=== PATIENT | male | born 1965 | race Caucasian/White ===

== ENCOUNTER 2016-10-31 20:06 | Emergency (ER) | payer BC ==
[~2016-10-31] VITALS: Ht 195.6 cm; Wt 173.0 kg
[~2016-10-31 20:06] MED LIST: AMIO200T42 PO; AMIO400T4 PO; AMLO10TA2 PO; APIX5TAB PO; ASPI-496 PO; BLOOD PRESSURE PO; CARV12.543 PO; CARV25TA12 PO; CLON0.1T PO; DIGO125T PO; DULA1.5P SC; ENOX150S5 SQ; FAMO20TA7 PO; FURO-92 PO; FURO-93 PO; HYDR-3307 PO; HYDR-3341 PO; HYDR-3342 PO; HYDR-3343 PO; IBUP200T48 PO; LEVO25CA2 PO; LORA-446 PO; LOSA100T6 PO; LOSA1TAB17 PO; LOSA1TAB18 PO; LOSA50TA6 PO; MAGN400T7 PO; MELA1TAB22 PO; METO25TA35 PO; METO50TA82 PO; OMEP20TA9 PO; POLY17PO5 PO; POTA20TA91 PO; RIVA20TA PO; SUCR1TAB33 PO; WARF10TA PO; WARF5TAB PO
[2016-10-31 20:14] VITALS: BP 182/103
== END 2016-10-31 21:01 | disposition left against medical advice (07) ==
LOC: ED 20:55
DX: R07.9 Chest pain, unspecified (principal); R06.02 Shortness of breath; Z53.21 Procedure and treatment not carried out due to patient leaving prior to being seen by health care provider
CPT/HCPCS: 93005; 99281

== ENCOUNTER 2017-03-30 11:44 | Observation (INO) | payer BC ==
[~2017-03-30] VITALS: Ht 195.6 cm; Wt 180.0 kg
[~2017-03-30 11:44] MED LIST changes: -AMIO400T4 PO; +AMIO400T5 PO; -IBUP200T48 PO; +IBUP200T49 PO; -LOSA1TAB17 PO; -LOSA1TAB18 PO; +LOSA1TAB22 PO; +LOSA1TAB25 PO
[2017-03-30] MEDS ORDERED: ASPIRIN 81 MG TABLET CHEW ONE (12:14)
[2017-03-30 12:28] LABS: BASOPHILS # (AUTO) 0.02 x10^3/uL (0-0.1); BASOPHILS % (AUTO) 0 % (0-1); EOSINOPHILS # (AUTO) 0.05 x10^3/uL (0-0.4); EOSINOPHILS % (AUTO) 1 % (1-7); LYMPHOCYTES # (AUTO) 1.71 x10^3/uL (1-3.4); LYMPHOCYTES % (AUTO) 25 % (22-44); MD NO; MEAN CORPUSCULAR HGB CONC 34.3 g/dL (33.2-36.2); MEAN CORPUSCULAR VOLUME 90.6 fL (81-97); MEAN PLATELET VOLUME 8.5 fL (7.4-10.4); MONOCYTES # (AUTO) 0.83 x10^3/uL (0.2-0.8); MONOCYTES % (AUTO) 12 % (2-9); NEUTROPHILS # (AUTO) 4.18 x10^3/uL (1.8-6.8); NEUTROPHILS % (AUTO) 62 % (42-75); PLATELET COUNT 200 x10^3/uL (130-400); RED CELL DISTRIBUTION WIDTH 13.1 % (9.4-14.8)
[2017-03-30] MEDS ORDERED: ASPIRIN 81 MG TABLET CHEW PO ONE (12:30)
[2017-03-30 12:41] LABS: ALBUMIN 3.7 g/dL (3.4-5.0); ANION GAP 5 mmol/L (5-15); CALCIUM 8.3 mg/dL (8.5-10.1); CHLORIDE 107 mmol/L (98-107); CREATININE 1.72 mg/dL (0.7-1.3)
[2017-03-30 12:45] LABS: TROPONIN I 0.024 ng/mL (0.000-0.045)
[2017-03-30] MEDS ORDERED: SODIUM CHLORIDE FLUSH 10ML SYR IVF ONE (13:00)
[2017-03-30] MEDS ORDERED: LORazepam 2 MG/ML, 1ML IVPush ONE (13:00)
[2017-03-30] MEDS ORDERED: LORazepam 2 MG/ML, 1ML ONE (13:00)
[2017-03-30] MEDS ORDERED: NITROGLYCERIN SINGLE TAB 0.4 MG SL ONE ×2 (13:30→13:35)
[2017-03-30] MEDS ORDERED: SODIUM CHLORIDE 0.9% 1,000 ML IV SCH (14:01)
[2017-03-30] MEDS ORDERED: morphine SULFATE 10 MG/ML, 1ML ONE ×2 (14:20→17:45)
[2017-03-30] MEDS: morphine SULFATE 10 MG/ML, 1ML IVPush PRN ×5 (14:22→21:57)
[2017-03-30] MEDS ORDERED: LABETALOL 5MG/ML, 20ML IVPush PRN (14:30)
[2017-03-30] MEDS ORDERED: POLYETHYLENE GLYCOL 17 GM PACKET PO PRN (14:30)
[2017-03-30] MEDS ORDERED: DOCUSATE 100 MG CAPSULE PO PRN (14:30)
[2017-03-30] MEDS ORDERED: ONDANSETRON 2MG/ML, 2ML IVPush PRN (14:30)
[2017-03-30] MEDS ORDERED: BISACODYL 10 MG SUPP PR PRN (14:30)
[2017-03-30] MEDS ORDERED: METOPROLOL TARTRATE 50 MG TABLET PO PRN (14:30)
[2017-03-30] MEDS ORDERED: NITROGLYCERIN 0.4 MG BOTTLE (25 TABS) SL PRN (14:30)
[2017-03-30 17:28] LABS: TROPONIN I 0.024 ng/mL (0.000-0.045)
[2017-03-30] MEDS ORDERED: HEPARIN 5,000 UNITS/ML, 1ML ONE (18:42)
[2017-03-30] MEDS: HEPARIN 5,000 UNITS/ML, 1ML SQ SCH (19:02)
[2017-03-30] MEDS ORDERED: KETOROLAC 30 MG/1 ML ONE (20:01)
[2017-03-30] MEDS ORDERED: KETOROLAC 30 MG/1 ML IVPush SCH (20:30)
[2017-03-30 21:26] VITALS: BP 145/90
[2017-03-30] MEDS ORDERED: HYDR-3343 PO (21:36)
[2017-03-30 23:08] LABS: TROPONIN I 0.025 ng/mL (0.000-0.045)
[2017-03-31] MEDS: morphine SULFATE 10 MG/ML, 1ML IVPush PRN ×2 (02:28→05:52)
[2017-03-31] MEDS: HEPARIN 5,000 UNITS/ML, 1ML SQ SCH ×2 (02:28→11:12)
[2017-03-31 02:41] VITALS: BP 165/72
[2017-03-31 05:47] LABS: CHOL/HDL RATIO 4.3; LDL/HDL RATIO 1.4 (0.5-3.0)
[2017-03-31] MEDS ORDERED: ASPIRIN 325 MG TABLET EC PO SCH (06:00)
[2017-03-31 07:42] VITALS: BP 151/87
[2017-03-31] MEDS ORDERED: REGADENOSON 0.4 MG/5 ML SYRINGE ONE (08:21)
[2017-03-31] MEDS ORDERED: LOSARTAN 50MG TABLET PO SCH (09:00)
[2017-03-31] MEDS ORDERED: LEVOTHYROXINE 75 MCG TABLET PO SCH (09:00)
[2017-03-31] MEDS ORDERED: AMLODIPINE 5 MG TABLET PO SCH (09:00)
[2017-03-31] MEDS ORDERED: KETOROLAC 30 MG/1 ML IVPush PRN (10:30)
[2017-03-31] MEDS ORDERED: FLU VACC QS2017-18 (36MOS+) UP/PF 0.5 ML IM-VACC ONE (12:30)
== END 2017-03-31 14:02 | disposition home or self-care (01) ==
LOC: ED 13:20 → INTOOBSV 13:21 → EDIP 13:21 → ED 13:33 → 5SO 20:14
PROVIDERS: ADMIT Internal Medicine; ATTEND Internal Medicine
DX: R07.9 Chest pain, unspecified (principal); D63.8 Anemia in other chronic diseases classified elsewhere; E03.9 Hypothyroidism, unspecified; E78.5 Hyperlipidemia, unspecified; I13.0 Hypertensive heart and chronic kidney disease with heart failure and stage 1 through stage 4 chronic kidney disease, or unspecified chronic kidney disease; E11.22 Type 2 diabetes mellitus with diabetic chronic kidney disease; G47.33 Obstructive sleep apnea (adult) (pediatric); I50.9 Heart failure, unspecified; N18.3 Chronic kidney disease, stage 3 (moderate); I48.91 Unspecified atrial fibrillation; I45.10 Unspecified right bundle-branch block; I42.9 Cardiomyopathy, unspecified; F41.1 Generalized anxiety disorder; E88.81 Metabolic syndrome and other insulin resistance; R06.02 Shortness of breath; I27.20 Pulmonary hypertension, unspecified; G89.29 Other chronic pain; M79.606 Pain in leg, unspecified; Z79.899 Other long term (current) drug therapy; Z98.890 Other specified postprocedural states
CPT/HCPCS: 36415; 71045; 78452; 80048; 80061; 82040; 84484; 85025; 85379; 90471; 90686; 93005; 93017; 96361; 96372; 96374; 96375; 96376; 99285; A9502; C9898; G0378; J1644; J1885; J2060; J2270; J2785; J7030

== ENCOUNTER 2017-12-05 10:56 | Inpatient (IN) | payer BC ==
[~2017-12-05] VITALS: Ht 195.6 cm; Wt 179.0 kg
[~2017-12-05 10:56] MED LIST changes: -AMLO10TA2 PO; +AMLO10TA6 PO; -LOSA100T6 PO; +LOSA100T7 PO; -LOSA50TA6 PO; +LOSA50TA7 PO
[2017-12-05] MEDS ORDERED: DILTIAZEM 125 MG in DEXTROSE 5% 100 ML IV SCH (11:21)
[2017-12-05] MEDS ORDERED: DILTIAZEM 5 MG/ML, 5ML ONE ×2 (11:23→12:20)
[2017-12-05] MEDS ORDERED: DILTIAZEM 5 MG/ML, 5ML IV ONE (11:30)
[2017-12-05] MEDS ORDERED: LORazepam 2 MG/ML, 1ML ONE (11:37)
[2017-12-05 12:00] LABS: BASOPHILS # (AUTO) 0.05 x10^3/uL (0-0.1); BASOPHILS % (AUTO) 1 % (0-1); EOSINOPHILS # (AUTO) 0.06 x10^3/uL (0-0.4); EOSINOPHILS % (AUTO) 1 % (1-7); LYMPHOCYTES # (AUTO) 2.05 x10^3/uL (1-3.4); LYMPHOCYTES % (AUTO) 21 % (22-44); MD NO; MEAN CORPUSCULAR HEMOGLOBIN 31.8 pg (27.5-34.5); MEAN CORPUSCULAR HGB CONC 33.9 g/dL (33.2-36.2); MEAN CORPUSCULAR VOLUME 93.8 fL (81-97); MEAN PLATELET VOLUME 9.7 fL (7.4-10.4); MONOCYTES # (AUTO) 0.98 x10^3/uL (0.2-0.8); MONOCYTES % (AUTO) 10 % (2-9); NEUTROPHILS # (AUTO) 6.55 x10^3/uL (1.8-6.8); NEUTROPHILS % (AUTO) 68 % (42-75); PLATELET COUNT 199 x10^3/uL (130-400); RED BLOOD COUNT 4.78 x10^6/uL (4.38-5.82); RED CELL DISTRIBUTION WIDTH 13.5 % (9.4-14.8)
[2017-12-05] MEDS ORDERED: LORazepam 2 MG/ML, 1ML IVPush ONE (12:00)
[2017-12-05 12:13] LABS: ALBUMIN 3.6 g/dL (3.4-5.0); ANION GAP 7 mmol/L (5-15); CALCIUM 8.2 mg/dL (8.5-10.1); CHLORIDE 111 mmol/L (98-107); CREATININE 2.01 mg/dL (0.7-1.3)
[2017-12-05 12:17] LABS: TROPONIN I 0.021 ng/mL (0.000-0.045)
[2017-12-05 12:22] LABS: INTERNATIONAL NORMALIZED RATIO 1.01 (0.93-1.1); PROTHROMBIN TIME 10.4 Seconds (9.6-11.5)
[2017-12-05] MEDS ORDERED: APIXABAN 2.5 MG TABLET PO ONE (13:00)
[2017-12-05] MEDS ORDERED: SODIUM CHLORIDE 0.9%, 500ML IVBOLUS ONE (13:00)
[2017-12-05] MEDS ORDERED: APIXABAN 5 MG TABLET ONE (13:04)
[2017-12-05] MEDS ORDERED: ONDANSETRON 2MG/ML, 2ML IVPush PRN (13:30)
[2017-12-05 14:30] VITALS: BP 130/86
[2017-12-05 14:46] LABS: TROPONIN I 0.025 ng/mL (0.000-0.045)
[2017-12-05] MEDS ORDERED: ACETAMINOPHEN 325 MG TABLET ONE (14:58)
[2017-12-05] MEDS: ACETAMINOPHEN 325 MG TABLET PO PRN ×2 (15:01→22:13)
[2017-12-05] MEDS: MORPHINE SULFATE 4 MG/ML, 1ML IVPush PRN ×2 (16:49→21:15)
[2017-12-05 19:18] LABS: HEMOGLOBIN A1C 6.3 % (4.2-6.3)
[2017-12-05 19:46] VITALS: BP 109/71
[2017-12-05 19:47] LABS: TROPONIN I 0.025 ng/mL (0.000-0.045)
[2017-12-05 20:48] VITALS: BP 123/78
[2017-12-05] MEDS: DILTIAZEM 125 MG in SODIUM CHLORIDE 0.9% 100 ML IV SCH (21:00)
[2017-12-06 02:00] VITALS: BP 135/78
[2017-12-06] MEDS: ACETAMINOPHEN 325 MG TABLET PO PRN ×2 (02:06→11:18)
[2017-12-06] MEDS: MORPHINE SULFATE 4 MG/ML, 1ML IVPush PRN ×3 (02:07→22:10)
[2017-12-06 05:53] LABS: ANION GAP 8 mmol/L (5-15); CALCIUM 7.7 mg/dL (8.5-10.1); CHLORIDE 109 mmol/L (98-107)
[2017-12-06 05:55] LABS: CREATININE 2.45 mg/dL (0.7-1.3)
[2017-12-06 06:11] LABS: BASOPHILS # (AUTO) 0.04 x10^3/uL (0-0.1); BASOPHILS % (AUTO) 1 % (0-1); EOSINOPHILS # (AUTO) 0.16 x10^3/uL (0-0.4); EOSINOPHILS % (AUTO) 3 % (1-7); LYMPHOCYTES # (AUTO) 2.32 x10^3/uL (1-3.4); LYMPHOCYTES % (AUTO) 37 % (22-44); MD NO; MEAN CORPUSCULAR HEMOGLOBIN 32.4 pg (27.5-34.5); MEAN CORPUSCULAR HGB CONC 34.3 g/dL (33.2-36.2); MEAN CORPUSCULAR VOLUME 94.5 fL (81-97); MEAN PLATELET VOLUME 9.6 fL (7.4-10.4); MONOCYTES # (AUTO) 0.73 x10^3/uL (0.2-0.8); MONOCYTES % (AUTO) 12 % (2-9); NEUTROPHILS # (AUTO) 3.02 x10^3/uL (1.8-6.8); NEUTROPHILS % (AUTO) 48 % (42-75); PLATELET COUNT 167 x10^3/uL (130-400); RED BLOOD COUNT 4.07 x10^6/uL (4.38-5.82); RED CELL DISTRIBUTION WIDTH 13.7 % (9.4-14.8)
[2017-12-06] MEDS: LEVOTHYROXINE 75 MCG TABLET PO SCH (06:30)
[2017-12-06] MEDS ORDERED: POTASSIUM PHOSPHATE 22 MEQ in SODIUM CHLORIDE 0.9% 500 ML IV ONE (09:00)
[2017-12-06] MEDS ORDERED: METOPROLOL TARTRATE 50 MG TABLET PO SCH (09:00)
[2017-12-06] MEDS ORDERED: APIXABAN 2.5 MG TABLET PO SCH (09:00)
[2017-12-06] MEDS: DILTIAZEM 125 MG in SODIUM CHLORIDE 0.9% 100 ML IV SCH (10:43)
[2017-12-06 13:53] VITALS: BP 116/74
[2017-12-06] MEDS: METOPROLOL TARTRATE 25 MG TABLET PO SCH (14:06)
[2017-12-06] MEDS ORDERED: METOPROLOL TARTRATE 50 MG TABLET ONE (14:07)
[2017-12-06] MEDS ORDERED: METOPROLOL TARTRATE 50 MG TABLET PO ONE (14:30)
[2017-12-06 19:04] VITALS: BP 105/76
[2017-12-06] MEDS: APIXABAN 5 MG TABLET PO SCH (22:10)
[2017-12-07 03:16] VITALS: BP 131/92
[2017-12-07] MEDS: LEVOTHYROXINE 75 MCG TABLET PO SCH (05:20)
[2017-12-07] MEDS: METOPROLOL TARTRATE 25 MG TABLET PO SCH (05:20)
[2017-12-07] MEDS: ACETAMINOPHEN 325 MG TABLET PO PRN (06:17)
[2017-12-07 07:35] VITALS: BP 134/78
[2017-12-07] MEDS: APIXABAN 5 MG TABLET PO SCH (07:40)
[2017-12-07 08:26] LABS: BASOPHILS # (AUTO) 0.05 x10^3/uL (0-0.1); BASOPHILS % (AUTO) 1 % (0-1); EOSINOPHILS # (AUTO) 0.14 x10^3/uL (0-0.4); EOSINOPHILS % (AUTO) 2 % (1-7); LYMPHOCYTES # (AUTO) 1.86 x10^3/uL (1-3.4); LYMPHOCYTES % (AUTO) 26 % (22-44); MD NO; MEAN CORPUSCULAR HEMOGLOBIN 31.9 pg (27.5-34.5); MEAN CORPUSCULAR HGB CONC 34.3 g/dL (33.2-36.2); MEAN PLATELET VOLUME 9.4 fL (7.4-10.4); MONOCYTES # (AUTO) 0.81 x10^3/uL (0.2-0.8); MONOCYTES % (AUTO) 11 % (2-9); NEUTROPHILS # (AUTO) 4.24 x10^3/uL (1.8-6.8); NEUTROPHILS % (AUTO) 60 % (42-75); PLATELET COUNT 185 x10^3/uL (130-400); RED BLOOD COUNT 4.36 x10^6/uL (4.38-5.82); RED CELL DISTRIBUTION WIDTH 14.2 % (9.4-14.8)
[2017-12-07 08:36] LABS: ANION GAP 6 mmol/L (5-15); CALCIUM 7.8 mg/dL (8.5-10.1); CHLORIDE 111 mmol/L (98-107); CREATININE 1.96 mg/dL (0.7-1.3)
[2017-12-07] MEDS ORDERED: APIX5TAB PO (09:57)
[2017-12-07] MEDS ORDERED: METO50TA82 PO (09:57)
[2017-12-07] MEDS ORDERED: METOPROLOL TARTRATE 50 MG TABLET PO ONE (10:00)
[2017-12-07] MEDS ORDERED: METOPROLOL TARTRATE 25 MG TABLET PO ONE (10:00)
[2017-12-07] MEDS ORDERED: METOPROLOL TARTRATE 50 MG TABLET PO SCH (18:00)
== END 2017-12-07 14:07 | disposition home or self-care (01) | DRG 309 ==
LOC: ED 11:20 → EDIP 12:54 → 5SO 14:08
PROVIDERS: ADMIT Family Medicine; ATTEND Family Medicine
DX: I48.0 Paroxysmal atrial fibrillation (principal); N17.9 Acute kidney failure, unspecified; I13.10 Hypertensive heart and chronic kidney disease without heart failure, with stage 1 through stage 4 chronic kidney disease, or unspecified chronic kidney disease; N18.3 Chronic kidney disease, stage 3 (moderate); G89.29 Other chronic pain; G47.33 Obstructive sleep apnea (adult) (pediatric); E11.22 Type 2 diabetes mellitus with diabetic chronic kidney disease; E03.9 Hypothyroidism, unspecified; I27.20 Pulmonary hypertension, unspecified; D63.8 Anemia in other chronic diseases classified elsewhere; I45.10 Unspecified right bundle-branch block; E78.5 Hyperlipidemia, unspecified; Z79.84 Long term (current) use of oral hypoglycemic drugs; K57.90 Diverticulosis of intestine, part unspecified, without perforation or abscess without bleeding; Z90.49 Acquired absence of other specified parts of digestive tract; Z88.6 Allergy status to analgesic agent
CPT/HCPCS: 36415; 71045; 80048; 82040; 83036; 83735; 83880; 84100; 84443; 84484; 85025; 85610; 85730; 90656; 93005; 93306; 96374; 96375; 99285; G0378; J2060; J7040

== ENCOUNTER 2018-01-21 10:41 | Day surgery (SDC) | payer BC ==
[~2018-01-21 10:41] MED LIST changes: -CLON0.1T PO; +CLON0.1T22 PO
[2018-01-21] MEDS ORDERED: SODIUM CHLORIDE 0.9% 500 ML IV PRN (11:40)
[2018-01-21] MEDS ORDERED: METO200T47 PO (11:49)
[2018-01-21] MEDS ORDERED: METO-290 PO (11:51)
[2018-01-21] MEDS ORDERED: DRON400T PO (11:53)
[2018-01-21] MEDS ORDERED: SPIR25TA5 PO (11:53)
[2018-01-21] MEDS ORDERED: ALPR1TAB2 PO (11:54)
[2018-01-21] MEDS ORDERED: VENL37.58 PO (11:56)
[2018-01-21] MEDS ORDERED: PROPOFOL 10 MG/ML, 20ML ONE (12:26)
[2018-01-21 12:43] LABS: BASOPHILS # (AUTO) 0.05 x10^3/uL (0-0.1); BASOPHILS % (AUTO) 1 % (0-1); EOSINOPHILS % (AUTO) 1 % (1-7); LYMPHOCYTES # (AUTO) 2.11 x10^3/uL (1-3.4); LYMPHOCYTES % (AUTO) 25 % (22-44); MD NO; MEAN CORPUSCULAR HEMOGLOBIN 31.5 pg (27.5-34.5); MEAN CORPUSCULAR VOLUME 92.7 fL (81-97); MEAN PLATELET VOLUME 9.1 fL (7.4-10.4); MONOCYTES # (AUTO) 0.94 x10^3/uL (0.2-0.8); MONOCYTES % (AUTO) 11 % (2-9); NEUTROPHILS # (AUTO) 5.24 x10^3/uL (1.8-6.8); NEUTROPHILS % (AUTO) 62 % (42-75); PLATELET COUNT 246 x10^3/uL (130-400); RED BLOOD COUNT 4.64 x10^6/uL (4.38-5.82); RED CELL DISTRIBUTION WIDTH 13.5 % (9.4-14.8)
[2018-01-21 12:55] LABS: ALANINE AMINOTRANSFERASE 47 U/L (12-78); ALBUMIN 3.6 g/dL (3.4-5.0); ANION GAP 9 mmol/L (5-15); CALCIUM 8.6 mg/dL (8.5-10.1); CHLORIDE 111 mmol/L (98-107); CHOLESTEROL, TOTAL 116 mg/dL (140-239); CREATININE 1.94 mg/dL (0.7-1.3)
[2018-01-21 13:03] LABS: HEMOGLOBIN A1C 6.9 % (4.2-6.3)
[2018-01-21 13:04] LABS: ALKALINE PHOSPHATASE 82 U/L (45-117); BILIRUBIN,TOTAL 0.5 mg/dL (0.2-1.0); CHOL/HDL RATIO 3.1; HDL CHOL % 33 % (26-37); HDL CHOLESTEROL (DIRECT) 38 mg/dL (40-60); LDL CHOLESTEROL,CALCULATED 48 mg/dL (54-169); LDL/HDL RATIO 1.3 (0.5-3.0); TOTAL PROTEIN 7.3 g/dL (6.4-8.2); TRIGLYCERIDES 152 mg/dL (50-200); VLDL CHOLESTEROL 30 mg/dL (0-25)
== END 2018-01-21 13:41 | disposition home or self-care (01) ==
LOC: CACL 10:41
PROVIDERS: ATTEND Internal Medicine Cardiovascular Disease
DX: I48.0 Paroxysmal atrial fibrillation (principal); E11.40 Type 2 diabetes mellitus with diabetic neuropathy, unspecified; I12.9 Hypertensive chronic kidney disease with stage 1 through stage 4 chronic kidney disease, or unspecified chronic kidney disease; N18.3 Chronic kidney disease, stage 3 (moderate); E03.9 Hypothyroidism, unspecified; E66.01 Morbid (severe) obesity due to excess calories; Z88.5 Allergy status to narcotic agent; Z79.899 Other long term (current) drug therapy; Z79.01 Long term (current) use of anticoagulants
CPT/HCPCS: 36415; 80053; 80061; 83036; 84436; 84481; 85025; 92960; 93005; J2704

== ENCOUNTER 2018-06-21 11:05 | Inpatient (IN) | payer BC, OTHER ==
[~2018-06-21] VITALS: Ht 195.6 cm; Wt 191.6 kg
[~2018-06-21 11:05] MED LIST changes: +ALPR1TAB2 PO; -AMLO10TA6 PO; +AMLO10TA8 PO; +DRON400T PO; +LOSA100T14 PO; -LOSA100T7 PO; +LOSA50TA14 PO; -LOSA50TA7 PO; +METO-290 PO; +METO200T47 PO; +SPIR25TA5 PO; +VENL37.58 PO
[2018-06-21] MEDS ORDERED: DILTIAZEM 125 MG in SODIUM CHLORIDE 0.9% 100 ML IV SCH (11:29)
[2018-06-21] MEDS ORDERED: SODIUM CHLORIDE FLUSH 10ML SYR IVF ONE (11:30)
[2018-06-21] MEDS ORDERED: ASPIRIN 81 MG TABLET CHEW PO ONE (11:30)
[2018-06-21] MEDS ORDERED: DILTIAZEM 5 MG/ML, 5ML IVPush ONE (11:30)
--- NOTE | 2018-06-21 11:35 | NUR ---
TASK RN: esperanza beckford ordered from pharmacy at this time.
[2018-06-21] MEDS ORDERED: ASPIRIN 81 MG TABLET CHEW ONE (11:42)
[2018-06-21 11:44] LABS: BASOPHILS # (AUTO) 0.04 x10^3/uL (0-0.1); BASOPHILS % (AUTO) 0 % (0-1); EOSINOPHILS # (AUTO) 0.02 x10^3/uL (0-0.4); EOSINOPHILS % (AUTO) 0 % (1-7); LYMPHOCYTES # (AUTO) 1.94 x10^3/uL (1-3.4); LYMPHOCYTES % (AUTO) 16 % (22-44); MD NO; MEAN CORPUSCULAR HEMOGLOBIN 32.4 pg (27.5-34.5); MEAN CORPUSCULAR HGB CONC 34.4 g/dL (33.2-36.2); MEAN CORPUSCULAR VOLUME 94.2 fL (81-97); MEAN PLATELET VOLUME 9.7 fL (7.4-10.4); MONOCYTES # (AUTO) 1.18 x10^3/uL (0.2-0.8); MONOCYTES % (AUTO) 10 % (2-9); NEUTROPHILS # (AUTO) 8.93 x10^3/uL (1.8-6.8); NEUTROPHILS % (AUTO) 74 % (42-75); PLATELET COUNT 200 x10^3/uL (130-400); RED BLOOD COUNT 4.05 x10^6/uL (4.38-5.82)
[2018-06-21] MEDS ORDERED: DILTIAZEM 5 MG/ML, 5ML ONE (11:44)
[2018-06-21 11:57] LABS: ALBUMIN 3.1 g/dL (3.4-5.0); ANION GAP 8 mmol/L (5-15); CALCIUM 8.6 mg/dL (8.5-10.1); CHLORIDE 108 mmol/L (98-107)
[2018-06-21 12:03] LABS: ALANINE AMINOTRANSFERASE 43 U/L (12-78); ALKALINE PHOSPHATASE 71 U/L (45-117); BILIRUBIN,TOTAL 0.8 mg/dL (0.2-1.0); TOTAL PROTEIN 7.1 g/dL (6.4-8.2)
--- NOTE | 2018-06-21 12:03 | NUR ---
PT MEDICATED PER APR, CARDIZEM GTT STARTED, [facility]
[2018-06-21] MEDS ORDERED: NIFE10CA PO (12:48)
--- NOTE | 2018-06-21 12:53 | NUR ---
PT RESTING IN [facility], STATES HE DOES NOT FEEL MUCH BETTER. HR 99-114 NOW ON CARDIZEM GTT. MED REC COMPLETE. CALL LIGHT WITHIN REACH
[2018-06-21] MEDS ORDERED: ENOXAPARIN 100 MG/ML SQ ONE (13:00)
[2018-06-21] MEDS ORDERED: Enoxaparin 1 mg/kg protocol SQ ONE (13:00)
[2018-06-21] MEDS ORDERED: ENOXAPARIN 80 MG/0.8 ML SQ ONE (13:00)
[2018-06-21] MEDS ORDERED: ENOXAPARIN 100 MG/ML ONE (13:12)
[2018-06-21] MEDS ORDERED: ENOXAPARIN 80 MG/0.8 ML ONE (13:12)
--- NOTE | 2018-06-21 13:41 | NUR ---
REPORT TO NHAN RAMIREZ
[2018-06-21 14:06] VITALS: BP 159/104
[2018-06-21] MEDS ORDERED: DULAGLUTIDE SC SCH (14:30)
[2018-06-21] MEDS ORDERED: ONDANSETRON 2MG/ML, 2ML ONE (14:48)
[2018-06-21] MEDS: SODIUM CHLORIDE 0.9% 1,000 ML IV SCH (14:53)
[2018-06-21] MEDS ORDERED: ACETAMINOPHEN 325 MG TABLET PO PRN (15:00)
[2018-06-21] MEDS ORDERED: hydrALAzine 20 MG/ML, 1ML IVPush PRN (15:00)
[2018-06-21] MEDS ORDERED: ONDANSETRON 2MG/ML, 2ML IVPush PRN (15:00)
[2018-06-21] MEDS ORDERED: DOCUSATE 100 MG CAPSULE PO PRN (15:00)
[2018-06-21] MEDS ORDERED: LABETALOL 5MG/ML, 20ML IVPush PRN (15:00)
[2018-06-21] MEDS ORDERED: PROMETHAZINE 25 MG/ML, 1ML IM PRN (15:00)
[2018-06-21] MEDS ORDERED: POLYETHYLENE GLYCOL 17 GM PACKET PO PRN (15:00)
[2018-06-21] MEDS ORDERED: BISACODYL 10 MG SUPP PR PRN (15:00)
[2018-06-21] MEDS ORDERED: ONDANSETRON ODT 4 MG PO PRN (15:00)
[2018-06-21 15:25] LABS: FREE T4 (FREE THYROXINE) 0.97 ng/dL (0.76-1.46); THYROID STIMULATING HORMONE 3.63 mIU/L (0.358-3.740)
[2018-06-21 15:44] LABS: HEMOGLOBIN A1C 7.9 % (4.2-6.3)
[2018-06-21] MEDS: INSULIN LISPRO 100 UNITS/ML, PEN SQ-INSULIN SCH ×2 (16:41→21:34)
[2018-06-21] MEDS: INSULIN GLARGINE 100 UNITS/ML, PEN SQ-INSULIN SCH (16:42)
[2018-06-21 19:56] VITALS: BP 112/80
[2018-06-21] MEDS: morphine SULFATE 10 MG/ML, 1ML IVPush PRN ×2 (21:48→23:04)
[2018-06-21] MEDS: DILTIAZEM 125 MG in SODIUM CHLORIDE 0.9% 100 ML IV SCH (23:54)
[2018-06-22] MEDS: ALPRazolam 1MG TAB PO PRN (00:21)
[2018-06-22 00:50] VITALS: BP 110/71
[2018-06-22] MEDS: SODIUM CHLORIDE 0.9% 1,000 ML IV SCH (01:00)
[2018-06-22 01:02] LABS: CULTURE INDICATED? NO; MICROSCOPIC INDICATED
[2018-06-22 04:55] LABS: BASOPHILS # (AUTO) 0.07 x10^3/uL (0-0.1); BASOPHILS % (AUTO) 1 % (0-1); EOSINOPHILS # (AUTO) 0.11 x10^3/uL (0-0.4); EOSINOPHILS % (AUTO) 1 % (1-7); LYMPHOCYTES # (AUTO) 3.23 x10^3/uL (1-3.4); LYMPHOCYTES % (AUTO) 32 % (22-44); MD NO; MEAN CORPUSCULAR HEMOGLOBIN 32.6 pg (27.5-34.5); MEAN CORPUSCULAR HGB CONC 34.6 g/dL (33.2-36.2); MEAN CORPUSCULAR VOLUME 94.3 fL (81-97); MEAN PLATELET VOLUME 9.4 fL (7.4-10.4); MONOCYTES # (AUTO) 1.09 x10^3/uL (0.2-0.8); MONOCYTES % (AUTO) 11 % (2-9); NEUTROPHILS # (AUTO) 5.63 x10^3/uL (1.8-6.8); NEUTROPHILS % (AUTO) 56 % (42-75); PLATELET COUNT 166 x10^3/uL (130-400); RED CELL DISTRIBUTION WIDTH 14.1 % (9.4-14.8)
[2018-06-22 05:08] LABS: CHLORIDE 108 mmol/L (98-107)
[2018-06-22 05:12] LABS: ALANINE AMINOTRANSFERASE 38 U/L (12-78); ALBUMIN 2.8 g/dL (3.4-5.0); ALKALINE PHOSPHATASE 66 U/L (45-117); ANION GAP 6 mmol/L (5-15); BILIRUBIN,TOTAL 0.5 mg/dL (0.2-1.0); CHOLESTEROL, TOTAL 113 mg/dL (140-239); CREATININE 3.07 mg/dL (0.7-1.3); HDL CHOLESTEROL (DIRECT) 30 mg/dL (40-60); TOTAL PROTEIN 6.4 g/dL (6.4-8.2); TRIGLYCERIDES 255 mg/dL (50-200); VLDL CHOLESTEROL 51 mg/dL (0-25)
[2018-06-22 05:13] LABS: CHOL/HDL RATIO 3.8; HDL CHOL % 27 % (26-37); LDL CHOLESTEROL,CALCULATED 32 mg/dL (54-169); LDL/HDL RATIO 1.1 (0.5-3.0)
[2018-06-22] MEDS: VENLAFAXINE XR 37.5MG CAP.ER.24H PO SCH (08:38)
[2018-06-22] MEDS: LEVOTHYROXINE 75 MCG TABLET PO SCH (08:38)
[2018-06-22] MEDS: APIXABAN 5 MG TABLET PO SCH ×2 (08:39→20:49)
[2018-06-22] MEDS: INSULIN LISPRO 100 UNITS/ML, PEN SQ-INSULIN SCH ×4 (08:40→20:54)
[2018-06-22] MEDS: AMLODIPINE 10 MG TAB PO SCH (08:49)
[2018-06-22 08:50] VITALS: BP 115/81
[2018-06-22] MEDS ORDERED: LOSARTAN 50MG TABLET PO SCH (09:00)
[2018-06-22] MEDS ORDERED: DILTIAZEM 125 MG in SODIUM CHLORIDE 0.9% 100 ML IV SCH (11:29)
[2018-06-22] MEDS: morphine SULFATE 10 MG/ML, 1ML IVPush PRN ×2 (11:56→23:15)
[2018-06-22] MEDS: METOPROLOL SUCCINATE 100 MG TAB.ER.24H PO SCH (11:56)
[2018-06-22] MEDS: DILTIAZEM 125 MG in SODIUM CHLORIDE 0.9% 100 ML IV SCH (12:25)
[2018-06-22 14:59] VITALS: BP 119/78
[2018-06-22] MEDS: INSULIN GLARGINE 100 UNITS/ML, PEN SQ-INSULIN SCH (16:22)
[2018-06-22 19:45] VITALS: BP 109/75
[2018-06-22] MEDS: HYDROcodone/APAP 5/325 TABLET PO PRN (20:49)
[2018-06-22] MEDS ORDERED: NITROGLYCERIN 0.4 MG/SPRAY SL PRN (23:00)
[2018-06-22] MEDS ORDERED: NITROGLYCERIN 0.4 MG BOTTLE (25 TABS) SL PRN (23:00)
[2018-06-22 23:06] VITALS: BP 115/78
[2018-06-23] MEDS: DILTIAZEM 125 MG in SODIUM CHLORIDE 0.9% 100 ML IV SCH (00:36)
[2018-06-23 02:13] VITALS: BP 119/84
[2018-06-23 05:34] LABS: BASOPHILS # (AUTO) 0.04 x10^3/uL (0-0.1); BASOPHILS % (AUTO) 1 % (0-1); EOSINOPHILS # (AUTO) 0.17 x10^3/uL (0-0.4); EOSINOPHILS % (AUTO) 2 % (1-7); LYMPHOCYTES % (AUTO) 25 % (22-44); MD NO; MEAN CORPUSCULAR HEMOGLOBIN 32.5 pg (27.5-34.5); MEAN CORPUSCULAR HGB CONC 34.2 g/dL (33.2-36.2); MEAN CORPUSCULAR VOLUME 95.2 fL (81-97); MEAN PLATELET VOLUME 9.2 fL (7.4-10.4); MONOCYTES # (AUTO) 1.08 x10^3/uL (0.2-0.8); MONOCYTES % (AUTO) 13 % (2-9); NEUTROPHILS # (AUTO) 5.05 x10^3/uL (1.8-6.8); NEUTROPHILS % (AUTO) 60 % (42-75); PLATELET COUNT 198 x10^3/uL (130-400); RED BLOOD COUNT 3.71 x10^6/uL (4.38-5.82); RED CELL DISTRIBUTION WIDTH 13.9 % (9.4-14.8)
[2018-06-23 05:48] LABS: ANION GAP 8 mmol/L (5-15); CALCIUM 8.2 mg/dL (8.5-10.1); CHLORIDE 106 mmol/L (98-107)
[2018-06-23 05:50] LABS: CREATININE 3.02 mg/dL (0.7-1.3)
[2018-06-23] MEDS: LEVOTHYROXINE 75 MCG TABLET PO SCH (06:04)
[2018-06-23] MEDS: INSULIN LISPRO 100 UNITS/ML, PEN SQ-INSULIN SCH ×4 (07:00→20:18)
[2018-06-23 07:21] VITALS: BP 136/91
[2018-06-23] MEDS: VENLAFAXINE XR 37.5MG CAP.ER.24H PO SCH (08:58)
[2018-06-23] MEDS: APIXABAN 5 MG TABLET PO SCH ×2 (08:59→20:18)
[2018-06-23] MEDS: AMLODIPINE 10 MG TAB PO SCH (08:59)
[2018-06-23] MEDS: morphine SULFATE 10 MG/ML, 1ML IVPush PRN ×3 (09:05→20:18)
[2018-06-23] MEDS: HYDROcodone/APAP 5/325 TABLET PO PRN ×3 (09:05→20:18)
[2018-06-23] MEDS ORDERED: DILTIAZEM CD 180 MG CAP.ER.24H PO SCH (10:00)
[2018-06-23] MEDS: METOPROLOL SUCCINATE 100 MG TAB.ER.24H PO SCH (12:16)
[2018-06-23] MEDS: INSULIN GLARGINE 100 UNITS/ML, PEN SQ-INSULIN SCH (12:53)
[2018-06-23 13:36] VITALS: BP 112/71
[2018-06-23] MEDS ORDERED: DILTIAZEM 125 MG in SODIUM CHLORIDE 0.9% 100 ML IV SCH (16:00)
[2018-06-23 18:55] VITALS: BP 136/90
[2018-06-24 00:47] VITALS: BP 128/77
[2018-06-24] MEDS: HYDROcodone/APAP 5/325 TABLET PO PRN ×4 (04:02→22:05)
[2018-06-24] MEDS: morphine SULFATE 10 MG/ML, 1ML IVPush PRN ×4 (04:07→22:05)
[2018-06-24] MEDS: LEVOTHYROXINE 75 MCG TABLET PO SCH (06:56)
[2018-06-24] MEDS: INSULIN LISPRO 100 UNITS/ML, PEN SQ-INSULIN SCH ×4 (07:00→20:27)
[2018-06-24 08:04] VITALS: BP 128/84
[2018-06-24 09:08] LABS: BASOPHILS # (AUTO) 0.04 x10^3/uL (0-0.1); BASOPHILS % (AUTO) 1 % (0-1); EOSINOPHILS # (AUTO) 0.13 x10^3/uL (0-0.4); EOSINOPHILS % (AUTO) 2 % (1-7); LYMPHOCYTES % (AUTO) 27 % (22-44); MD NO; MEAN CORPUSCULAR HEMOGLOBIN 32.4 pg (27.5-34.5); MEAN CORPUSCULAR VOLUME 95.2 fL (81-97); MONOCYTES # (AUTO) 0.76 x10^3/uL (0.2-0.8); MONOCYTES % (AUTO) 10 % (2-9); NEUTROPHILS # (AUTO) 4.43 x10^3/uL (1.8-6.8); NEUTROPHILS % (AUTO) 60 % (42-75); PLATELET COUNT 224 x10^3/uL (130-400); RED BLOOD COUNT 3.95 x10^6/uL (4.38-5.82); RED CELL DISTRIBUTION WIDTH 14.1 % (9.4-14.8)
[2018-06-24] MEDS: APIXABAN 5 MG TABLET PO SCH ×2 (09:10→20:27)
[2018-06-24] MEDS: VENLAFAXINE XR 37.5MG CAP.ER.24H PO SCH (09:11)
[2018-06-24] MEDS: METOPROLOL SUCCINATE 50 MG TAB.ER.24H PO SCH (09:11)
[2018-06-24 09:19] LABS: ANION GAP 6 mmol/L (5-15); CALCIUM 8.3 mg/dL (8.5-10.1); CHLORIDE 105 mmol/L (98-107)
[2018-06-24 09:21] LABS: CREATININE 2.49 mg/dL (0.7-1.3)
[2018-06-24 13:44] VITALS: BP 149/94
[2018-06-24] MEDS ORDERED: MORPHINE SULFATE 4 MG/ML, 1ML ONE (16:40)
[2018-06-24] MEDS: INSULIN GLARGINE 100 UNITS/ML, PEN SQ-INSULIN SCH (16:43)
[2018-06-24] MEDS: AMLODIPINE 10 MG TAB PO SCH (19:53)
[2018-06-24 20:28] VITALS: BP 124/84
[2018-06-25 01:00] VITALS: BP 118/83
[2018-06-25 05:27] LABS: ANION GAP 6 mmol/L (5-15); CALCIUM 8.1 mg/dL (8.5-10.1); CHLORIDE 109 mmol/L (98-107)
[2018-06-25 05:29] LABS: CREATININE 2.44 mg/dL (0.7-1.3)
[2018-06-25] MEDS: LEVOTHYROXINE 75 MCG TABLET PO SCH (05:57)
[2018-06-25] MEDS: HYDROcodone/APAP 5/325 TABLET PO PRN ×2 (05:58→12:41)
[2018-06-25 07:50] VITALS: BP 168/96
[2018-06-25] MEDS: APIXABAN 5 MG TABLET PO SCH ×2 (08:04→20:58)
[2018-06-25] MEDS: INSULIN LISPRO 100 UNITS/ML, PEN SQ-INSULIN SCH ×4 (08:04→21:07)
[2018-06-25] MEDS: VENLAFAXINE XR 37.5MG CAP.ER.24H PO SCH (08:04)
[2018-06-25] MEDS: METOPROLOL SUCCINATE 50 MG TAB.ER.24H PO SCH (08:04)
[2018-06-25] MEDS: AMLODIPINE 10 MG TAB PO SCH (08:04)
[2018-06-25] MEDS: METOPROLOL SUCCINATE 100 MG TAB.ER.24H PO SCH (09:13)
[2018-06-25] MEDS ORDERED: METOPROLOL SUCCINATE 50 MG TAB.ER.24H PO ONE (09:30)
[2018-06-25 12:40] VITALS: BP 156/96
[2018-06-25 13:19] LABS: CREATININE,URINE RANDOM 85.7 mg/dL
[2018-06-25] MEDS: ALPRazolam 1MG TAB PO PRN (14:14)
[2018-06-25] MEDS ORDERED: PHARMACY MAY ADJ FOR RENAL FX MC PRN (15:30)
[2018-06-25] MEDS: INSULIN GLARGINE 100 UNITS/ML, PEN SQ-INSULIN SCH (18:05)
[2018-06-25 18:46] VITALS: BP 151/89
[2018-06-25 20:57] VITALS: BP 135/99
[2018-06-25] MEDS: FAMOTIDINE 20 MG TABLET PO SCH (20:58)
[2018-06-25] MEDS: morphine SULFATE 10 MG/ML, 1ML IVPush PRN (22:31)
[2018-06-26 03:33] VITALS: BP 157/101
[2018-06-26] MEDS: morphine SULFATE 10 MG/ML, 1ML IVPush PRN (03:44)
[2018-06-26 04:41] VITALS: BP 149/93
[2018-06-26] MEDS: LEVOTHYROXINE 75 MCG TABLET PO SCH (05:32)
[2018-06-26 05:37] LABS: BASOPHILS # (AUTO) 0.04 x10^3/uL (0-0.1); BASOPHILS % (AUTO) 1 % (0-1); EOSINOPHILS # (AUTO) 0.12 x10^3/uL (0-0.4); EOSINOPHILS % (AUTO) 2 % (1-7); LYMPHOCYTES # (AUTO) 2.06 x10^3/uL (1-3.4); LYMPHOCYTES % (AUTO) 26 % (22-44); MD NO; MEAN CORPUSCULAR HEMOGLOBIN 32.6 pg (27.5-34.5); MEAN CORPUSCULAR HGB CONC 34.3 g/dL (33.2-36.2); MEAN CORPUSCULAR VOLUME 94.9 fL (81-97); MEAN PLATELET VOLUME 8.9 fL (7.4-10.4); MONOCYTES # (AUTO) 0.94 x10^3/uL (0.2-0.8); MONOCYTES % (AUTO) 12 % (2-9); NEUTROPHILS # (AUTO) 4.81 x10^3/uL (1.8-6.8); NEUTROPHILS % (AUTO) 60 % (42-75); PLATELET COUNT 211 x10^3/uL (130-400); RED BLOOD COUNT 3.76 x10^6/uL (4.38-5.82); RED CELL DISTRIBUTION WIDTH 14.6 % (9.4-14.8)
[2018-06-26 05:48] LABS: CHLORIDE 112 mmol/L (98-107)
[2018-06-26 06:22] LABS: ANION GAP 9 mmol/L (5-15); CALCIUM 8.4 mg/dL (8.5-10.1); CREATININE 2.09 mg/dL (0.7-1.3)
[2018-06-26] MEDS: INSULIN LISPRO 100 UNITS/ML, PEN SQ-INSULIN SCH ×4 (07:00→21:00)
[2018-06-26 08:09] VITALS: BP 130/68
[2018-06-26] MEDS: VENLAFAXINE XR 37.5MG CAP.ER.24H PO SCH (08:16)
[2018-06-26] MEDS: AMLODIPINE 10 MG TAB PO SCH (08:16)
[2018-06-26] MEDS: DILTIAZEM 30 MG TABLET PO SCH ×3 (08:17→20:20)
[2018-06-26] MEDS: APIXABAN 5 MG TABLET PO SCH ×2 (08:17→20:20)
[2018-06-26] MEDS: FAMOTIDINE 20 MG TABLET PO SCH ×2 (08:17→20:20)
[2018-06-26] MEDS: METOPROLOL SUCCINATE 100 MG TAB.ER.24H PO SCH (08:17)
[2018-06-26] MEDS ORDERED: DIGOXIN 0.125 MG TABLET PO SCH (09:00)
[2018-06-26 13:30] VITALS: BP 161/94
[2018-06-26] MEDS: HYDROcodone/APAP 5/325 TABLET PO PRN ×2 (15:11→20:49)
[2018-06-26] MEDS: INSULIN GLARGINE 100 UNITS/ML, PEN SQ-INSULIN SCH (17:28)
[2018-06-26 19:25] VITALS: BP 135/99
[2018-06-26 20:18] VITALS: BP 118/72
[2018-06-27 01:29] VITALS: BP 146/92
[2018-06-27] MEDS: HYDROcodone/APAP 5/325 TABLET PO PRN (01:44)
[2018-06-27 03:23] VITALS: BP 159/97
[2018-06-27] MEDS: DILTIAZEM 30 MG TABLET PO SCH ×2 (03:24→08:41)
[2018-06-27] MEDS: LEVOTHYROXINE 75 MCG TABLET PO SCH (05:36)
[2018-06-27] MEDS: INSULIN LISPRO 100 UNITS/ML, PEN SQ-INSULIN SCH ×2 (07:00→11:00)
[2018-06-27 07:58] VITALS: BP 150/92
[2018-06-27 08:08] LABS: ALBUMIN 3.2 g/dL (3.4-5.0); ANION GAP 6 mmol/L (5-15); CALCIUM 8.5 mg/dL (8.5-10.1); CHLORIDE 110 mmol/L (98-107); CREATININE 2.41 mg/dL (0.7-1.3)
[2018-06-27] MEDS: AMLODIPINE 10 MG TAB PO SCH (08:41)
[2018-06-27] MEDS: METOPROLOL SUCCINATE 100 MG TAB.ER.24H PO SCH (08:41)
[2018-06-27] MEDS: VENLAFAXINE XR 37.5MG CAP.ER.24H PO SCH (08:41)
[2018-06-27] MEDS: APIXABAN 5 MG TABLET PO SCH (08:41)
[2018-06-27] MEDS: FAMOTIDINE 20 MG TABLET PO SCH (08:41)
[2018-06-27] MEDS ORDERED: DIGO125T PO (11:31)
[2018-06-27] MEDS ORDERED: DILT30TA27 PO (11:31)
[2018-06-27] MEDS ORDERED: INSU100I13 SQ-INSULIN (11:31)
[2018-06-27] MEDS ORDERED: METO-95 PO (11:31)
[2018-06-27] MEDS ORDERED: APIX5TAB PO (11:31)
== END 2018-06-27 14:00 | disposition home or self-care (01) | DRG 309 ==
LOC: ED 12:22 → EDIP 12:43 → 5SO 14:01 → DCLOUNGE 06-27 13:39
PROVIDERS: ADMIT Internal Medicine; ATTEND Internal Medicine
DX: I48.2 Chronic atrial fibrillation (principal); D68.59 Other primary thrombophilia; I31.3 Pericardial effusion (noninflammatory); E44.0 Moderate protein-calorie malnutrition; I13.0 Hypertensive heart and chronic kidney disease with heart failure and stage 1 through stage 4 chronic kidney disease, or unspecified chronic kidney disease; I50.32 Chronic diastolic (congestive) heart failure; Z68.43 Body mass index [BMI] 50.0-59.9, adult; N17.9 Acute kidney failure, unspecified; I71.2 Thoracic aortic aneurysm, without rupture; D72.829 Elevated white blood cell count, unspecified; E66.01 Morbid (severe) obesity due to excess calories; E11.65 Type 2 diabetes mellitus with hyperglycemia; D64.9 Anemia, unspecified; E03.9 Hypothyroidism, unspecified; E11.22 Type 2 diabetes mellitus with diabetic chronic kidney disease; E78.5 Hyperlipidemia, unspecified; F17.200 Nicotine dependence, unspecified, uncomplicated; F41.1 Generalized anxiety disorder; I45.10 Unspecified right bundle-branch block; K21.9 Gastro-esophageal reflux disease without esophagitis; Z91.19 Patient's noncompliance with other medical treatment and regimen; N18.3 Chronic kidney disease, stage 3 (moderate); Z79.01 Long term (current) use of anticoagulants; Z90.49 Acquired absence of other specified parts of digestive tract
CPT/HCPCS: 36415; 70450; 71045; 71250; 76770; 80048; 80053; 80061; 81001; 82040; 82570; 82962; 83036; 83735; 83880; 84156; 84439; 84443; 84484; 85025; 93005; 93306; 93970; 96372; G0378; J1650; J2405; J0360; J1815; J2270; J7030

== ENCOUNTER 2018-07-10 08:17 | Inpatient (IN) | payer OTHER ==
[~2018-07-10] VITALS: Ht 195.6 cm; Wt 185.0 kg
[~2018-07-10 08:17] MED LIST changes: +DILT30TA27 PO; +INSU100I13 SQ-INSULIN; +METO-95 PO; +NIFE10CA PO
[2018-07-10] MEDS ORDERED: METO-95 PO (08:49)
[2018-07-10] MEDS ORDERED: DULA1.5P SQ (08:49)
[2018-07-10] MEDS ORDERED: DILTIAZEM 5 MG/ML, 5ML IVPush ONE (09:00)
[2018-07-10] MEDS ORDERED: DILTIAZEM 5 MG/ML, 10ML ONE (09:00)
[2018-07-10] MEDS ORDERED: APIXABAN 5 MG TABLET ONE (09:05)
--- NOTE | 2018-07-10 09:10 | NUR ---
Pt woke with AM with pain to center chest. Pt presented to ED in rapid Afib c RVR 130-150s. No sob.
[2018-07-10] MEDS ORDERED: APIXABAN 5 MG TABLET PO ONE (09:30)
[2018-07-10 09:31] LABS: ALANINE AMINOTRANSFERASE 41 U/L (12-78); ALBUMIN 3.9 g/dL (3.4-5.0); ANION GAP 9 mmol/L (5-15); CALCIUM 8.8 mg/dL (8.5-10.1); CHLORIDE 107 mmol/L (98-107); CREATININE 2.42 mg/dL (0.7-1.3)
[2018-07-10 09:36] LABS: ALKALINE PHOSPHATASE 106 U/L (45-117); BILIRUBIN,TOTAL 0.7 mg/dL (0.2-1.0); TOTAL PROTEIN 7.6 g/dL (6.4-8.2); TROPONIN I < 0.015 ng/mL (0.000-0.045)
[2018-07-10] MEDS ORDERED: ASPIRIN 81 MG TABLET CHEW ONE (09:38)
[2018-07-10] MEDS ORDERED: ASPIRIN 81 MG TABLET CHEW PO ONE (10:00)
[2018-07-10 10:32] LABS: BASOPHILS # (AUTO) 0.06 x10^3/uL (0-0.1); BASOPHILS % (AUTO) 1 % (0-1); EOSINOPHILS # (AUTO) 0.05 x10^3/uL (0-0.4); EOSINOPHILS % (AUTO) 1 % (1-7); LYMPHOCYTES # (AUTO) 1.42 x10^3/uL (1-3.4); LYMPHOCYTES % (AUTO) 15 % (22-44); MD NO; MEAN PLATELET VOLUME 9.1 fL (7.4-10.4); MONOCYTES # (AUTO) 0.92 x10^3/uL (0.2-0.8); MONOCYTES % (AUTO) 10 % (2-9); NEUTROPHILS # (AUTO) 7.18 x10^3/uL (1.8-6.8); NEUTROPHILS % (AUTO) 75 % (42-75); PLATELET COUNT 260 x10^3/uL (130-400); RED BLOOD COUNT 4.21 x10^6/uL (4.38-5.82); RED CELL DISTRIBUTION WIDTH 14.4 % (9.4-14.8)
[2018-07-10 12:36] VITALS: BP 129/80
[2018-07-10] MEDS ORDERED: DOCUSATE 100 MG CAPSULE PO PRN (16:00)
[2018-07-10] MEDS ORDERED: ALPRazolam 1MG TAB PO PRN (16:00)
[2018-07-10] MEDS ORDERED: hydrALAzine 20 MG/ML, 1ML IVPush PRN (16:00)
[2018-07-10] MEDS ORDERED: ACETAMINOPHEN 325 MG TABLET PO PRN (16:00)
[2018-07-10] MEDS ORDERED: PROMETHAZINE 25 MG/ML, 1ML IM PRN (16:00)
[2018-07-10] MEDS ORDERED: POLYETHYLENE GLYCOL 17 GM PACKET PO PRN (16:00)
[2018-07-10] MEDS ORDERED: BISACODYL 10 MG SUPP PR PRN (16:00)
[2018-07-10] MEDS ORDERED: ONDANSETRON 2MG/ML, 2ML IVPush PRN (16:00)
[2018-07-10] MEDS ORDERED: ONDANSETRON ODT 4 MG PO PRN (16:00)
[2018-07-10] MEDS: OXYcodone IR 5MG TABLET PO PRN ×2 (16:19→21:47)
[2018-07-10 16:46] LABS: FREE T4 (FREE THYROXINE) 1.24 ng/dL (0.76-1.46); THYROID STIMULATING HORMONE 3.3 mIU/L (0.358-3.740)
[2018-07-10 16:48] LABS: HEMOGLOBIN A1C 7.8 % (4.2-6.3)
[2018-07-10] MEDS: INSULIN LISPRO 100 UNITS/ML, PEN SQ-INSULIN SCH ×2 (17:08→21:05)
[2018-07-10 18:08] VITALS: BP 124/76
[2018-07-10] MEDS: METOPROLOL 1 MG/ML, 5ML IVPush PRN (18:10)
[2018-07-10] MEDS: MORPHINE SULFATE 4 MG/ML, 1ML IVPush PRN ×2 (18:19→19:49)
[2018-07-10 19:40] VITALS: BP 106/63
[2018-07-10] MEDS ORDERED: HEPARIN 5,000 UNITS/ML, 1ML IV ONE (21:00)
[2018-07-10 21:02] VITALS: BP 123/79
[2018-07-10] MEDS: METOPROLOL SUCCINATE 100 MG TAB.ER.24H PO SCH (21:03)
[2018-07-10] MEDS: HEPARIN 25,000 UNITS/500ML PMX 500 ML IV PRN (22:46)
[2018-07-11 02:06] VITALS: BP 132/79
[2018-07-11 05:14] LABS: BASOPHILS # (AUTO) 0.05 x10^3/uL (0-0.1); BASOPHILS % (AUTO) 1 % (0-1); EOSINOPHILS % (AUTO) 1 % (1-7); LYMPHOCYTES # (AUTO) 2.37 x10^3/uL (1-3.4); LYMPHOCYTES % (AUTO) 30 % (22-44); MD NO; MEAN CORPUSCULAR HEMOGLOBIN 31.8 pg (27.5-34.5); MEAN CORPUSCULAR HGB CONC 33.1 g/dL (33.2-36.2); MEAN CORPUSCULAR VOLUME 96.1 fL (81-97); MONOCYTES # (AUTO) 1.14 x10^3/uL (0.2-0.8); MONOCYTES % (AUTO) 14 % (2-9); NEUTROPHILS # (AUTO) 4.27 x10^3/uL (1.8-6.8); NEUTROPHILS % (AUTO) 54 % (42-75); PLATELET COUNT 225 x10^3/uL (130-400); RED BLOOD COUNT 4.25 x10^6/uL (4.38-5.82); RED CELL DISTRIBUTION WIDTH 14.3 % (9.4-14.8)
[2018-07-11 05:28] LABS: CHLORIDE 106 mmol/L (98-107)
[2018-07-11 05:35] LABS: ALANINE AMINOTRANSFERASE 32 U/L (12-78); ALBUMIN 3.3 g/dL (3.4-5.0); ALKALINE PHOSPHATASE 89 U/L (45-117); ANION GAP 9 mmol/L (5-15); BILIRUBIN,TOTAL 0.9 mg/dL (0.2-1.0); CALCIUM 8.2 mg/dL (8.5-10.1); CHOL/HDL RATIO 2.8; CHOLESTEROL, TOTAL 107 mg/dL (140-239); CREATININE 2.62 mg/dL (0.7-1.3); HDL CHOL % 36 % (26-37); HDL CHOLESTEROL (DIRECT) 38 mg/dL (40-60); LDL CHOLESTEROL,CALCULATED 34 mg/dL (54-169); LDL/HDL RATIO 0.9 (0.5-3.0); TOTAL PROTEIN 6.8 g/dL (6.4-8.2); TRIGLYCERIDES 174 mg/dL (50-200); VLDL CHOLESTEROL 35 mg/dL (0-25)
[2018-07-11] MEDS: HEPARIN 5,000 UNITS/ML, 1ML IV PRN ×2 (05:39→18:44)
[2018-07-11 08:43] VITALS: BP 131/73
[2018-07-11] MEDS: LEVOTHYROXINE 75 MCG TABLET PO SCH (08:46)
[2018-07-11] MEDS: AMLODIPINE 10 MG TAB PO SCH (08:47)
[2018-07-11] MEDS: METOPROLOL SUCCINATE 100 MG TAB.ER.24H PO SCH ×2 (08:47→19:51)
[2018-07-11] MEDS: VENLAFAXINE XR 37.5MG CAP.ER.24H PO SCH (08:47)
[2018-07-11] MEDS: INSULIN LISPRO 100 UNITS/ML, PEN SQ-INSULIN SCH ×4 (08:47→20:34)
[2018-07-11] MEDS: OXYcodone IR 5MG TABLET PO PRN ×3 (11:00→19:26)
[2018-07-11 13:28] VITALS: BP 118/83
[2018-07-11] MEDS: MORPHINE SULFATE 4 MG/ML, 1ML IVPush PRN ×2 (13:30→22:37)
[2018-07-11] MEDS: HEPARIN 25,000 UNITS/500ML PMX 500 ML IV PRN (13:41)
[2018-07-11] MEDS ORDERED: FUROSEMIDE 40 MG/4 ML IV ONE (14:30)
[2018-07-11 19:48] VITALS: BP 115/76
[2018-07-11 21:18] VITALS: BP 131/73
[2018-07-12] VITALS (7 sets, daily range): BP systolic 108–140; BP diastolic 73–79
[2018-07-12 01:11] LABS: ANION GAP 9 mmol/L (5-15); CALCIUM 8.5 mg/dL (8.5-10.1); CHLORIDE 108 mmol/L (98-107); CREATININE 2.58 mg/dL (0.7-1.3)
[2018-07-12] MEDS: HEPARIN 5,000 UNITS/ML, 1ML IV PRN ×2 (01:27→14:56)
[2018-07-12] MEDS: HEPARIN 25,000 UNITS/500ML PMX 500 ML IV PRN ×2 (02:33→14:57)
[2018-07-12] MEDS: OXYcodone IR 5MG TABLET PO PRN ×3 (06:48→20:36)
[2018-07-12] MEDS: METOPROLOL 1 MG/ML, 5ML IVPush PRN (06:50)
[2018-07-12] MEDS: FUROSEMIDE 20 MG/2 ML IV SCH (08:33)
[2018-07-12] MEDS: MORPHINE SULFATE 4 MG/ML, 1ML IVPush PRN ×3 (08:33→23:00)
[2018-07-12] MEDS: INSULIN LISPRO 100 UNITS/ML, PEN SQ-INSULIN SCH ×4 (08:33→20:47)
[2018-07-12] MEDS: LEVOTHYROXINE 75 MCG TABLET PO SCH (08:34)
[2018-07-12] MEDS: VENLAFAXINE XR 37.5MG CAP.ER.24H PO SCH (08:34)
[2018-07-12] MEDS: AMLODIPINE 10 MG TAB PO SCH (10:05)
[2018-07-12] MEDS: METOPROLOL SUCCINATE 100 MG TAB.ER.24H PO SCH ×2 (10:05→20:37)
[2018-07-12] MEDS ORDERED: FUROSEMIDE 40 MG/4 ML IV ONE (11:00)
[2018-07-12] MEDS ORDERED: NITROGLYCERIN 0.4 MG/SPRAY SL PRN (18:30)
[2018-07-12] MEDS ORDERED: NITROGLYCERIN 0.4 MG BOTTLE (25 TABS) SL PRN (18:30)
[2018-07-12 19:00] LABS: TROPONIN I < 0.015 ng/mL (0.000-0.045)
[2018-07-12] MEDS: APIXABAN 5 MG TABLET PO SCH (20:36)
[2018-07-12 22:33] LABS: TROPONIN I < 0.015 ng/mL (0.000-0.045)
[2018-07-13 00:31] VITALS: BP 115/78
[2018-07-13 00:52] LABS: TROPONIN I < 0.015 ng/mL (0.000-0.045)
[2018-07-13 05:07] LABS: ANION GAP 7 mmol/L (5-15); CALCIUM 8.1 mg/dL (8.5-10.1); CHLORIDE 109 mmol/L (98-107); CREATININE 2.78 mg/dL (0.7-1.3)
[2018-07-13] MEDS: INSULIN LISPRO 100 UNITS/ML, PEN SQ-INSULIN SCH ×4 (07:27→21:08)
[2018-07-13 07:50] VITALS: BP 143/92
[2018-07-13] MEDS ORDERED: METOPROLOL SUCCINATE 25 MG TAB.ER.24H ONE (08:04)
[2018-07-13] MEDS: LEVOTHYROXINE 75 MCG TABLET PO SCH (08:16)
[2018-07-13] MEDS: VENLAFAXINE XR 37.5MG CAP.ER.24H PO SCH (08:17)
[2018-07-13] MEDS: AMLODIPINE 10 MG TAB PO SCH (08:17)
[2018-07-13] MEDS: METOPROLOL SUCCINATE 100 MG TAB.ER.24H PO SCH (08:17)
[2018-07-13] MEDS: APIXABAN 5 MG TABLET PO SCH ×2 (08:17→21:06)
[2018-07-13] MEDS: FUROSEMIDE 20 MG/2 ML IV SCH (08:18)
[2018-07-13 13:51] VITALS: BP 110/72
[2018-07-13] MEDS: OXYcodone IR 5MG TABLET PO PRN ×2 (13:51→21:07)
[2018-07-13 19:11] VITALS: BP 128/65
[2018-07-13] MEDS ORDERED: DIPHENHYDRAMINE 25 MG CAPSULE PO ONE (19:30)
[2018-07-13] MEDS ORDERED: DIPHENHYDRAMINE 25 MG CAPSULE ONE (19:32)
[2018-07-13] MEDS: METOPROLOL SUCCINATE 50 MG TAB.ER.24H PO SCH (21:06)
[2018-07-13] MEDS: MORPHINE SULFATE 4 MG/ML, 1ML IVPush PRN (22:07)
[2018-07-14 01:13] VITALS: BP 113/75
[2018-07-14] MEDS: MORPHINE SULFATE 4 MG/ML, 1ML IVPush PRN (04:06)
[2018-07-14 07:38] VITALS: BP 141/88
[2018-07-14] MEDS: INSULIN LISPRO 100 UNITS/ML, PEN SQ-INSULIN SCH ×4 (07:41→20:44)
[2018-07-14] MEDS: FUROSEMIDE 20 MG/2 ML IV SCH (08:26)
[2018-07-14] MEDS: VENLAFAXINE XR 37.5MG CAP.ER.24H PO SCH (08:27)
[2018-07-14] MEDS: LEVOTHYROXINE 75 MCG TABLET PO SCH (08:27)
[2018-07-14] MEDS: AMLODIPINE 10 MG TAB PO SCH (08:27)
[2018-07-14] MEDS: METOPROLOL SUCCINATE 50 MG TAB.ER.24H PO SCH ×2 (08:28→20:35)
[2018-07-14] MEDS: APIXABAN 5 MG TABLET PO SCH ×2 (08:28→20:34)
[2018-07-14] MEDS ORDERED: REGADENOSON 0.4 MG/5 ML SYRINGE ONE (09:29)
[2018-07-14] MEDS: OXYcodone IR 5MG TABLET PO PRN ×2 (11:38→20:36)
[2018-07-14 12:14] VITALS: BP 115/77
[2018-07-14 14:01] LABS: ANION GAP 8 mmol/L (5-15); CALCIUM 8.8 mg/dL (8.5-10.1); CHLORIDE 108 mmol/L (98-107); CREATININE 2.56 mg/dL (0.7-1.3)
[2018-07-14 20:26] VITALS: BP 131/68
[2018-07-15 01:18] VITALS: BP 119/78
[2018-07-15] MEDS: OXYcodone IR 5MG TABLET PO PRN ×3 (03:34→12:34)
[2018-07-15 07:15] VITALS: BP 134/81
[2018-07-15] MEDS ORDERED: LEVOTHYROXINE 75 MCG TABLET PO SCH (08:00)
[2018-07-15] MEDS: FUROSEMIDE 20 MG/2 ML IV SCH (08:47)
[2018-07-15] MEDS: METOPROLOL SUCCINATE 50 MG TAB.ER.24H PO SCH (08:48)
[2018-07-15] MEDS: VENLAFAXINE XR 37.5MG CAP.ER.24H PO SCH (08:49)
[2018-07-15] MEDS: AMLODIPINE 10 MG TAB PO SCH (08:49)
[2018-07-15] MEDS: APIXABAN 5 MG TABLET PO SCH (08:50)
[2018-07-15] MEDS: INSULIN LISPRO 100 UNITS/ML, PEN SQ-INSULIN SCH ×2 (08:54→12:31)
[2018-07-15 12:40] VITALS: BP 128/82
[2018-07-15] MEDS ORDERED: METO-95 PO (14:21)
[2018-07-15] MEDS ORDERED: HYDR-3343 PO (14:21)
[2018-07-15] MEDS ORDERED: FURO40TA6 PO (14:21)
[2018-07-15] MEDS ORDERED: TRAM50TA2 PO (15:55)
== END 2018-07-15 15:42 | disposition home or self-care (01) | DRG 309 ==
LOC: ED 10:56 → EDIP 10:58 → 5SO 12:22 → DCLOUNGE 07-15 15:21
PROVIDERS: ADMIT Internal Medicine; ATTEND Internal Medicine
DX: I48.0 Paroxysmal atrial fibrillation (principal); D68.59 Other primary thrombophilia; E44.0 Moderate protein-calorie malnutrition; Z68.42 Body mass index [BMI] 45.0-49.9, adult; I13.0 Hypertensive heart and chronic kidney disease with heart failure and stage 1 through stage 4 chronic kidney disease, or unspecified chronic kidney disease; I31.3 Pericardial effusion (noninflammatory); I50.32 Chronic diastolic (congestive) heart failure; D64.9 Anemia, unspecified; E03.9 Hypothyroidism, unspecified; E11.22 Type 2 diabetes mellitus with diabetic chronic kidney disease; E78.5 Hyperlipidemia, unspecified; I20.9 Angina pectoris, unspecified; I45.10 Unspecified right bundle-branch block; I71.2 Thoracic aortic aneurysm, without rupture; N18.3 Chronic kidney disease, stage 3 (moderate); Z79.01 Long term (current) use of anticoagulants; Z90.49 Acquired absence of other specified parts of digestive tract; Z88.5 Allergy status to narcotic agent
CPT/HCPCS: 36415; 71045; 71250; 78452; 80048; 80053; 80061; 82962; 83036; 83735; 83880; 84439; 84443; 84484; 85025; 85520; 93005; 93017; 96374; 99291; G0378; J1644; J1940; J2785; A9502; C9898; J1815; J2270; Q0163

== ENCOUNTER 2018-07-21 21:42 | Inpatient (IN) | payer BC, OTHER ==
[~2018-07-21] VITALS: Ht 195.6 cm; Wt 180.0 kg
[~2018-07-21 21:42] MED LIST changes: +DULA1.5P SQ; +FURO40TA6 PO; +TRAM50TA2 PO
--- NOTE | 2018-07-21 21:50 | NUR ---
PT IN GOWN IN [facility]. DR HAWTHORNE AT . 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 PT IN AFIB WITH RVR; OTHER VSS. PT EDUCATED ON ER PROCESS AND POC AND VERBALIZES UNDERSTANDING. PT HAS CALL [facility] WITHIN REACH. IV ACCESS OBTAINED AND LABS DRAWN AT THIS TIME. PT DENIES ANY OTHER NEEDS AT THIS TIME.
[2018-07-21] MEDS ORDERED: METOPROLOL 1 MG/ML, 5ML ONE (22:08)
--- NOTE | 2018-07-21 22:16 | NUR ---
PT MEDICATED PER MAR. PT HR DROPPED TO 99 ON MONITOR.
[2018-07-21] MEDS ORDERED: ASPIRIN 81 MG TABLET CHEW ONE (22:19)
[2018-07-21 22:20] LABS: BASOPHILS # (AUTO) 0.04 x10^3/uL (0-0.1); BASOPHILS % (AUTO) 1 % (0-1); EOSINOPHILS # (AUTO) 0.06 x10^3/uL (0-0.4); EOSINOPHILS % (AUTO) 1 % (1-7); LYMPHOCYTES # (AUTO) 2.66 x10^3/uL (1-3.4); LYMPHOCYTES % (AUTO) 30 % (22-44); MD NO; MEAN CORPUSCULAR HEMOGLOBIN 30.8 pg (27.5-34.5); MEAN CORPUSCULAR HGB CONC 32.6 g/dL (33.2-36.2); MEAN CORPUSCULAR VOLUME 94.6 fL (81-97); MEAN PLATELET VOLUME 8.8 fL (7.4-10.4); MONOCYTES # (AUTO) 1.05 x10^3/uL (0.2-0.8); MONOCYTES % (AUTO) 12 % (2-9); NEUTROPHILS # (AUTO) 4.97 x10^3/uL (1.8-6.8); NEUTROPHILS % (AUTO) 57 % (42-75); PLATELET COUNT 276 x10^3/uL (130-400); RED CELL DISTRIBUTION WIDTH 14.1 % (9.4-14.8)
[2018-07-21] MEDS ORDERED: METOPROLOL 1 MG/ML, 5ML IVPush PRN (22:30)
[2018-07-21] MEDS ORDERED: ASPIRIN 81 MG TABLET CHEW PO ONE (22:30)
[2018-07-21 22:32] LABS: ALANINE AMINOTRANSFERASE 36 U/L (12-78); ALBUMIN 3.8 g/dL (3.4-5.0); ANION GAP 7 mmol/L (5-15); CALCIUM 8.6 mg/dL (8.5-10.1); CHLORIDE 108 mmol/L (98-107); CREATININE 2.93 mg/dL (0.7-1.3)
[2018-07-21 22:36] LABS: ALKALINE PHOSPHATASE 89 U/L (45-117); BILIRUBIN,TOTAL 0.2 mg/dL (0.2-1.0); TOTAL PROTEIN 7.6 g/dL (6.4-8.2); TROPONIN I < 0.015 ng/mL (0.000-0.045)
--- NOTE | 2018-07-21 23:28 | NUR ---
PT MEDS REVIEWED WITH PT. PT MED REC UPDATED.
--- NOTE | 2018-07-21 23:59 | NUR ---
REPORT OF PT TO JAMES CARMICHAEL. ALL QUESTIONS ANSWERED. PT TRANSPORTED TO FLOOR VIA GURNEY.
[2018-07-22] VITALS (12 sets, daily range): BP systolic 110–139; BP diastolic 72–97
[2018-07-22] MEDS ORDERED: ONDANSETRON ODT 4 MG PO PRN (00:30)
[2018-07-22] MEDS ORDERED: NITROGLYCERIN 0.4 MG BOTTLE (25 TABS) SL PRN (00:30)
[2018-07-22] MEDS ORDERED: LIDODERM 5% PATCH TD PRN (00:30)
[2018-07-22] MEDS ORDERED: ENALAPRILAT 1.25 MG/ML, 2ML IVPush PRN (00:30)
[2018-07-22] MEDS ORDERED: DOCUSATE 100 MG CAPSULE PO PRN (00:30)
[2018-07-22] MEDS ORDERED: TEMPLATE NON-FORMULARY MED. (Dulaglutide (Trulicity) 1.5 MG) SQ SCH (00:30)
[2018-07-22] MEDS: METOPROLOL SUCCINATE 100 MG TAB.ER.24H PO SCH ×4 (01:34→21:18)
[2018-07-22] MEDS: morphine SULFATE 10 MG/ML, 1ML IVPush PRN (01:43)
[2018-07-22 06:07] LABS: TROPONIN I < 0.015 ng/mL (0.000-0.045)
[2018-07-22] MEDS: INSULIN LISPRO 100 UNITS/ML, PEN SQ-INSULIN SCH ×4 (07:00→21:00)
[2018-07-22] MEDS ORDERED: LEVOTHYROXINE 75 MCG TABLET PO SCH (09:00)
[2018-07-22] MEDS: APIXABAN 5 MG TABLET PO SCH ×2 (10:12→21:18)
[2018-07-22] MEDS: VENLAFAXINE XR 37.5MG CAP.ER.24H PO SCH (10:12)
[2018-07-22] MEDS: AMLODIPINE 10 MG TAB PO SCH (10:13)
[2018-07-22] MEDS: FUROSEMIDE 40 MG TABLET PO SCH (10:13)
[2018-07-22] MEDS: ACETAMINOPHEN 325 MG TABLET PO PRN (10:22)
[2018-07-22 12:28] LABS: TROPONIN I < 0.015 ng/mL (0.000-0.045)
[2018-07-23 01:07] VITALS: BP 147/87
[2018-07-23] MEDS: LEVOTHYROXINE 75 MCG TABLET PO SCH (05:31)
[2018-07-23 06:13] LABS: BASOPHILS # (AUTO) 0.05 x10^3/uL (0-0.1); BASOPHILS % (AUTO) 1 % (0-1); EOSINOPHILS # (AUTO) 0.12 x10^3/uL (0-0.4); EOSINOPHILS % (AUTO) 2 % (1-7); LYMPHOCYTES # (AUTO) 2.39 x10^3/uL (1-3.4); LYMPHOCYTES % (AUTO) 32 % (22-44); MD NO; MEAN CORPUSCULAR HEMOGLOBIN 31.4 pg (27.5-34.5); MEAN CORPUSCULAR HGB CONC 33.1 g/dL (33.2-36.2); MEAN CORPUSCULAR VOLUME 94.8 fL (81-97); MEAN PLATELET VOLUME 8.9 fL (7.4-10.4); MONOCYTES # (AUTO) 0.78 x10^3/uL (0.2-0.8); MONOCYTES % (AUTO) 10 % (2-9); NEUTROPHILS # (AUTO) 4.19 x10^3/uL (1.8-6.8); NEUTROPHILS % (AUTO) 56 % (42-75); PLATELET COUNT 229 x10^3/uL (130-400); RED BLOOD COUNT 4.39 x10^6/uL (4.38-5.82)
[2018-07-23 06:23] LABS: ANION GAP 5 mmol/L (5-15); CALCIUM 8.4 mg/dL (8.5-10.1); CHLORIDE 109 mmol/L (98-107); CREATININE 2.29 mg/dL (0.7-1.3)
[2018-07-23] MEDS: INSULIN LISPRO 100 UNITS/ML, PEN SQ-INSULIN SCH ×4 (07:00→21:19)
[2018-07-23 08:55] VITALS: BP 117/90
[2018-07-23] MEDS: FUROSEMIDE 40 MG TABLET PO SCH (09:18)
[2018-07-23] MEDS: AMLODIPINE 10 MG TAB PO SCH (09:18)
[2018-07-23] MEDS: APIXABAN 5 MG TABLET PO SCH ×2 (09:18→20:10)
[2018-07-23] MEDS: VENLAFAXINE XR 37.5MG CAP.ER.24H PO SCH (09:18)
[2018-07-23] MEDS: ACETAMINOPHEN 325 MG TABLET PO PRN (09:26)
[2018-07-23] MEDS: METOPROLOL SUCCINATE 100 MG TAB.ER.24H PO SCH ×3 (09:26→20:10)
[2018-07-23 10:49] VITALS: BP 99/64
[2018-07-23] MEDS: AMIODARONE 200 MG TABLET PO SCH ×2 (10:51→20:10)
[2018-07-23 10:57] LABS: HEMOGLOBIN A1C 7.5 % (4.2-6.3)
[2018-07-23 15:10] VITALS: BP 104/66
[2018-07-23 17:37] VITALS: BP 112/66
[2018-07-23] MEDS: morphine SULFATE 10 MG/ML, 1ML IVPush PRN ×2 (17:53→21:13)
[2018-07-23 19:36] VITALS: BP 122/82
[2018-07-24] VITALS (7 sets, daily range): BP systolic 109–130; BP diastolic 74–92
[2018-07-24] MEDS: morphine SULFATE 10 MG/ML, 1ML IVPush PRN ×5 (00:51→22:13)
[2018-07-24] MEDS: LEVOTHYROXINE 75 MCG TABLET PO SCH (06:04)
[2018-07-24] MEDS: INSULIN LISPRO 100 UNITS/ML, PEN SQ-INSULIN SCH ×4 (07:52→22:22)
[2018-07-24] MEDS: APIXABAN 5 MG TABLET PO SCH ×2 (08:38→22:12)
[2018-07-24] MEDS: FUROSEMIDE 40 MG TABLET PO SCH (08:38)
[2018-07-24] MEDS: AMIODARONE 200 MG TABLET PO SCH ×2 (08:38→22:12)
[2018-07-24] MEDS: VENLAFAXINE XR 37.5MG CAP.ER.24H PO SCH (08:38)
[2018-07-24] MEDS: METOPROLOL SUCCINATE 100 MG TAB.ER.24H PO SCH ×3 (08:38→22:12)
[2018-07-24] MEDS: AMLODIPINE 10 MG TAB PO SCH (08:38)
[2018-07-24 08:49] LABS: ANION GAP 9 mmol/L (5-15); CALCIUM 8.4 mg/dL (8.5-10.1); CHLORIDE 107 mmol/L (98-107)
[2018-07-24] MEDS: ACETAMINOPHEN 325 MG TABLET PO PRN (15:16)
[2018-07-25 01:43] VITALS: BP 139/82
[2018-07-25] MEDS: morphine SULFATE 10 MG/ML, 1ML IVPush PRN (02:23)
[2018-07-25] MEDS: LEVOTHYROXINE 75 MCG TABLET PO SCH (06:03)
[2018-07-25] MEDS: INSULIN LISPRO 100 UNITS/ML, PEN SQ-INSULIN SCH ×4 (07:00→20:57)
[2018-07-25 08:18] VITALS: BP 133/89
[2018-07-25 08:57] LABS: BASOPHILS # (AUTO) 0.05 x10^3/uL (0-0.1); BASOPHILS % (AUTO) 1 % (0-1); EOSINOPHILS % (AUTO) 1 % (1-7); LYMPHOCYTES # (AUTO) 2.49 x10^3/uL (1-3.4); LYMPHOCYTES % (AUTO) 28 % (22-44); MD NO; MEAN CORPUSCULAR HEMOGLOBIN 30.9 pg (27.5-34.5); MEAN CORPUSCULAR HGB CONC 33.1 g/dL (33.2-36.2); MEAN CORPUSCULAR VOLUME 93.6 fL (81-97); MEAN PLATELET VOLUME 8.9 fL (7.4-10.4); MONOCYTES # (AUTO) 0.89 x10^3/uL (0.2-0.8); MONOCYTES % (AUTO) 10 % (2-9); NEUTROPHILS # (AUTO) 5.43 x10^3/uL (1.8-6.8); NEUTROPHILS % (AUTO) 61 % (42-75); PLATELET COUNT 257 x10^3/uL (130-400); RED CELL DISTRIBUTION WIDTH 14.5 % (9.4-14.8)
[2018-07-25] MEDS: VENLAFAXINE XR 37.5MG CAP.ER.24H PO SCH (08:57)
[2018-07-25] MEDS: METOPROLOL SUCCINATE 100 MG TAB.ER.24H PO SCH ×3 (08:57→20:50)
[2018-07-25] MEDS: AMLODIPINE 10 MG TAB PO SCH (08:57)
[2018-07-25] MEDS: AMIODARONE 200 MG TABLET PO SCH ×2 (08:57→20:50)
[2018-07-25] MEDS: FUROSEMIDE 40 MG TABLET PO SCH (08:57)
[2018-07-25] MEDS: APIXABAN 5 MG TABLET PO SCH ×2 (08:58→20:50)
[2018-07-25 08:59] LABS: ANION GAP 7 mmol/L (5-15); CALCIUM 8.8 mg/dL (8.5-10.1); CHLORIDE 107 mmol/L (98-107); CREATININE 2.56 mg/dL (0.7-1.3)
[2018-07-25 14:04] VITALS: BP 110/80
[2018-07-25] MEDS: BACITRACIN ZINC OINT 500U/GM, 0.9 GM TP SCH (15:33)
[2018-07-25 20:18] VITALS: BP 125/81
[2018-07-26 01:30] VITALS: BP 130/87
[2018-07-26] MEDS: morphine SULFATE 10 MG/ML, 1ML IVPush PRN (02:10)
[2018-07-26] MEDS: LEVOTHYROXINE 75 MCG TABLET PO SCH (05:19)
[2018-07-26] MEDS: INSULIN LISPRO 100 UNITS/ML, PEN SQ-INSULIN SCH ×2 (07:00→11:34)
[2018-07-26 07:36] VITALS: BP 136/98
[2018-07-26] MEDS: AMIODARONE 200 MG TABLET PO SCH (07:54)
[2018-07-26] MEDS: AMLODIPINE 10 MG TAB PO SCH (07:54)
[2018-07-26] MEDS: VENLAFAXINE XR 37.5MG CAP.ER.24H PO SCH (07:54)
[2018-07-26] MEDS: APIXABAN 5 MG TABLET PO SCH (07:54)
[2018-07-26] MEDS: METOPROLOL SUCCINATE 100 MG TAB.ER.24H PO SCH (07:54)
[2018-07-26] MEDS: FUROSEMIDE 40 MG TABLET PO SCH (07:55)
[2018-07-26] MEDS: BACITRACIN ZINC OINT 500U/GM, 0.9 GM TP SCH (07:55)
[2018-07-26 13:08] VITALS: BP 120/81
[2018-07-26] MEDS ORDERED: AMIO200T42 PO (13:43)
== END 2018-07-26 15:25 | disposition home health service (06) | DRG 309 ==
LOC: ED 22:42 → EDIP 23:14 → 5SO 23:54
PROVIDERS: ADMIT Family Medicine; ATTEND Family Medicine
PROC: 5A2204Z Restoration of Cardiac Rhythm, Single (ICD-10-PCS; principal; 2018-07-21)
DX: I48.2 Chronic atrial fibrillation (principal); D68.69 Other thrombophilia; E44.0 Moderate protein-calorie malnutrition; I13.0 Hypertensive heart and chronic kidney disease with heart failure and stage 1 through stage 4 chronic kidney disease, or unspecified chronic kidney disease; I50.32 Chronic diastolic (congestive) heart failure; J98.11 Atelectasis; Z68.42 Body mass index [BMI] 45.0-49.9, adult; E03.9 Hypothyroidism, unspecified; E11.22 Type 2 diabetes mellitus with diabetic chronic kidney disease; E11.65 Type 2 diabetes mellitus with hyperglycemia; E66.01 Morbid (severe) obesity due to excess calories; E78.5 Hyperlipidemia, unspecified; F41.9 Anxiety disorder, unspecified; G47.33 Obstructive sleep apnea (adult) (pediatric); G89.29 Other chronic pain; I45.10 Unspecified right bundle-branch block; I71.2 Thoracic aortic aneurysm, without rupture; N18.3 Chronic kidney disease, stage 3 (moderate); Z66 Do not resuscitate; Z79.01 Long term (current) use of anticoagulants; Z87.891 Personal history of nicotine dependence; Z91.19 Patient's noncompliance with other medical treatment and regimen; Z90.49 Acquired absence of other specified parts of digestive tract; Z93.3 Colostomy status; Z88.5 Allergy status to narcotic agent; Z88.8 Allergy status to other drugs, medicaments and biological substances
CPT/HCPCS: 36415; 71045; 80048; 80053; 82962; 83036; 84443; 84484; 85025; 92960; 93005; 96374; G0378; J1815; J2270

== ENCOUNTER 2018-08-08 09:56 | Day surgery (SDC) | payer BC ==
[~2018-08-08] VITALS: Ht 195.6 cm; Wt 177.3 kg
[2018-08-08] MEDS ORDERED: SODIUM CHLORIDE 0.9% 500 ML IV PRN (10:17)
[2018-08-08 10:25] VITALS: BP 132/80
[2018-08-08] MEDS ORDERED: PLEASE ENTER HEIGHT AND WEIGHT MC SCH (10:30)
[2018-08-08] MEDS ORDERED: MECL25TA4 PO (10:36)
[2018-08-08] MEDS ORDERED: METO-95 PO (12:48)
== END 2018-08-08 13:53 | disposition home or self-care (01) ==
LOC: CACL 09:56
PROVIDERS: ATTEND Internal Medicine Cardiovascular Disease
DX: I48.0 Paroxysmal atrial fibrillation (principal); E11.22 Type 2 diabetes mellitus with diabetic chronic kidney disease; I13.0 Hypertensive heart and chronic kidney disease with heart failure and stage 1 through stage 4 chronic kidney disease, or unspecified chronic kidney disease; I50.22 Chronic systolic (congestive) heart failure; N18.3 Chronic kidney disease, stage 3 (moderate); E03.9 Hypothyroidism, unspecified; J44.9 Chronic obstructive pulmonary disease, unspecified; E78.2 Mixed hyperlipidemia; E66.01 Morbid (severe) obesity due to excess calories; Z68.42 Body mass index [BMI] 45.0-49.9, adult; Z79.4 Long term (current) use of insulin; Z79.01 Long term (current) use of anticoagulants; Z79.890 Hormone replacement therapy; Z79.899 Other long term (current) drug therapy; Z88.8 Allergy status to other drugs, medicaments and biological substances
CPT/HCPCS: 92960

== ENCOUNTER 2018-08-12 08:55 | Inpatient (IN) | payer BC, OTHER ==
[~2018-08-12] VITALS: Ht 195.6 cm; Wt 177.3 kg
[~2018-08-12 08:55] MED LIST changes: +MECL25TA4 PO
[2018-08-12] MEDS ORDERED: DILTIAZEM 125 MG in SODIUM CHLORIDE 0.9% 100 ML IV SCH (09:29)
[2018-08-12] MEDS ORDERED: DILTIAZEM 5 MG/ML, 5ML IV ONE (09:30)
--- NOTE | 2018-08-12 09:35 | NUR ---
Pt reports 3 days of feeling increasing gen. weakness, intermittent CP & SOB. Has hx of a-fib, is compliant w/ meds but feels he has been in a-fib past 3 days. Saw director data processing this AM & was sent to ER for IP admission. Pt is a-fib on monitor 130's -150's, CP 3/10 & mild SOB. EKG done in triage, cardiac, NIBP & SPO2 monitor w/ 2 liters O2 via NC placed. IV est, labs drawn, pt has been seen by ER MD & is aware of POC. Call light within reach, sitting up on side of bed for comfort.
[2018-08-12 09:57] LABS: BASOPHILS # (AUTO) 0.06 x10^3/uL (0-0.1); BASOPHILS % (AUTO) 1 % (0-1); EOSINOPHILS # (AUTO) 0.05 x10^3/uL (0-0.4); EOSINOPHILS % (AUTO) 1 % (1-7); LYMPHOCYTES # (AUTO) 1.54 x10^3/uL (1-3.4); LYMPHOCYTES % (AUTO) 15 % (22-44); MD NO; MEAN CORPUSCULAR HEMOGLOBIN 30.4 pg (27.5-34.5); MEAN CORPUSCULAR HGB CONC 32.6 g/dL (33.2-36.2); MEAN CORPUSCULAR VOLUME 93.4 fL (81-97); MEAN PLATELET VOLUME 9.2 fL (7.4-10.4); MONOCYTES # (AUTO) 1.03 x10^3/uL (0.2-0.8); MONOCYTES % (AUTO) 10 % (2-9); NEUTROPHILS # (AUTO) 7.67 x10^3/uL (1.8-6.8); NEUTROPHILS % (AUTO) 74 % (42-75); PLATELET COUNT 207 x10^3/uL (130-400); RED CELL DISTRIBUTION WIDTH 14.5 % (9.4-14.8)
[2018-08-12] MEDS ORDERED: ONDANSETRON 2MG/ML, 2ML ONE (09:58)
[2018-08-12 10:04] LABS: INTERNATIONAL NORMALIZED RATIO 1.05 (0.93-1.1)
--- NOTE | 2018-08-12 10:05 | NUR ---
pt upright on gurney awake & calm, responds approp to staff, NAD, comfort measures provided, call light within reach.
[2018-08-12 10:06] LABS: ALBUMIN 3.6 g/dL (3.4-5.0); ANION GAP 9 mmol/L (5-15); CALCIUM 8.7 mg/dL (8.5-10.1); CHLORIDE 105 mmol/L (98-107)
[2018-08-12 10:11] LABS: ALANINE AMINOTRANSFERASE 32 U/L (12-78); ALKALINE PHOSPHATASE 93 U/L (45-117); BILIRUBIN,TOTAL 1.1 mg/dL (0.2-1.0); CREATININE 2.87 mg/dL (0.7-1.3); TOTAL PROTEIN 7.6 g/dL (6.4-8.2); TROPONIN I < 0.015 ng/mL (0.000-0.045)
--- NOTE | 2018-08-12 10:59 | NUR ---
pt remains upright on gurney awake & comfortable, able to doze off, responds approp to staff, NAD, comfort measures provided, call light within reach.
[2018-08-12] MEDS ORDERED: SODIUM CHLORIDE FLUSH 10ML SYR IVF PRN (11:30)
--- NOTE | 2018-08-12 11:36 | NUR ---
Pt to be admitted to [facility], room 507. Report called to Moira.
--- NOTE | 2018-08-12 11:44 | NUR ---
[facility] at for consult, then to floor.
[2018-08-12] MEDS ORDERED: VENL75TA2 PO (12:57)
[2018-08-12] MEDS ORDERED: ALPR-475 PO (12:57)
[2018-08-12] MEDS ORDERED: AMIODARONE 200 MG TABLET PO ONE (14:30)
[2018-08-12 15:00] VITALS: BP 104/69
[2018-08-12] MEDS: DIGOXIN 0.25 MG/ML, 2ML IVPush SCH ×2 (15:02→21:33)
[2018-08-12] MEDS ORDERED: COLCHICINE 0.6 MG TABLET PO ONE ×2 (16:00→17:00)
[2018-08-12] MEDS ORDERED: COLCHICINE 0.6 MG TABLET PO SCH (16:00)
[2018-08-12] MEDS: DILTIAZEM 125 MG in SODIUM CHLORIDE 0.9% 100 ML IV SCH (16:22)
[2018-08-12] MEDS: morphine SULFATE 10 MG/ML, 1ML IV PRN ×2 (16:55→21:33)
[2018-08-12] MEDS ORDERED: DIGOXIN 0.25 MG TABLET PO ONE (18:00)
[2018-08-12 18:40] LABS: TROPONIN I < 0.015 ng/mL (0.000-0.045)
[2018-08-12 18:41] VITALS: BP 125/82
[2018-08-12 19:04] VITALS: BP 127/68
[2018-08-12] MEDS ORDERED: AMIODARONE 200 MG TABLET PO SCH (21:00)
[2018-08-12] MEDS: SODIUM CHLORIDE FLUSH 10ML SYR IVF SCH (21:32)
[2018-08-12] MEDS: APIXABAN 5 MG TABLET PO SCH (21:32)
[2018-08-12] MEDS: METOPROLOL SUCCINATE 100 MG TAB.ER.24H PO SCH (21:32)
[2018-08-13 00:03] LABS: TROPONIN I < 0.015 ng/mL (0.000-0.045)
[2018-08-13 00:10] VITALS: BP 138/90
[2018-08-13] MEDS: morphine SULFATE 10 MG/ML, 1ML IV PRN ×5 (00:48→20:34)
[2018-08-13 05:19] LABS: BASOPHILS # (AUTO) 0.03 x10^3/uL (0-0.1); BASOPHILS % (AUTO) 0 % (0-1); EOSINOPHILS # (AUTO) 0.01 x10^3/uL (0-0.4); EOSINOPHILS % (AUTO) 0 % (1-7); LYMPHOCYTES # (AUTO) 1.25 x10^3/uL (1-3.4); LYMPHOCYTES % (AUTO) 15 % (22-44); MD NO; MEAN CORPUSCULAR HEMOGLOBIN 30.8 pg (27.5-34.5); MEAN CORPUSCULAR HGB CONC 33.1 g/dL (33.2-36.2); MONOCYTES # (AUTO) 0.71 x10^3/uL (0.2-0.8); MONOCYTES % (AUTO) 8 % (2-9); NEUTROPHILS # (AUTO) 6.41 x10^3/uL (1.8-6.8); NEUTROPHILS % (AUTO) 76 % (42-75); PLATELET COUNT 180 x10^3/uL (130-400); RED BLOOD COUNT 4.58 x10^6/uL (4.38-5.82); RED CELL DISTRIBUTION WIDTH 14.4 % (9.4-14.8)
[2018-08-13 05:23] LABS: ALBUMIN 3.3 g/dL (3.4-5.0); ANION GAP 7 mmol/L (5-15); CALCIUM 8.5 mg/dL (8.5-10.1); CHLORIDE 105 mmol/L (98-107)
[2018-08-13 05:38] LABS: ALANINE AMINOTRANSFERASE 24 U/L (12-78); ALKALINE PHOSPHATASE 72 U/L (45-117); CREATININE 2.85 mg/dL (0.7-1.3)
[2018-08-13] MEDS: DIGOXIN 0.25 MG/ML, 2ML IVPush SCH (06:10)
[2018-08-13] MEDS: LEVOTHYROXINE 75 MCG TABLET PO SCH (06:11)
[2018-08-13 07:10] VITALS: BP 149/76
[2018-08-13] MEDS: FUROSEMIDE 40 MG TABLET PO SCH (08:22)
[2018-08-13] MEDS: APIXABAN 5 MG TABLET PO SCH ×2 (08:22→20:35)
[2018-08-13] MEDS: VENLAFAXINE XR 37.5MG CAP.ER.24H PO SCH (08:22)
[2018-08-13] MEDS: SODIUM CHLORIDE FLUSH 10ML SYR IVF SCH ×2 (08:23→20:36)
[2018-08-13] MEDS: METOPROLOL SUCCINATE 100 MG TAB.ER.24H PO SCH ×2 (08:23→20:35)
[2018-08-13] MEDS ORDERED: DILT120C80 PO (08:30)
[2018-08-13] MEDS ORDERED: LOSA100T14 PO (08:30)
[2018-08-13] MEDS ORDERED: LEVO100T5 PO (08:30)
[2018-08-13] MEDS ORDERED: DIGOXIN 0.25 MG TABLET PO SCH (09:00)
[2018-08-13] MEDS ORDERED: DILTIAZEM CD 180 MG CAP.ER.24H PO SCH (12:00)
[2018-08-13 12:28] VITALS: BP 141/88
[2018-08-13 15:34] VITALS: BP 156/88
[2018-08-13 19:54] VITALS: BP 143/73
[2018-08-13 20:32] VITALS: BP 132/83
[2018-08-14] MEDS: morphine SULFATE 10 MG/ML, 1ML IV PRN ×5 (00:06→20:36)
[2018-08-14 02:15] VITALS: BP 121/76
[2018-08-14] MEDS: LEVOTHYROXINE 75 MCG TABLET PO SCH (05:53)
[2018-08-14 06:08] LABS: ALBUMIN 3.2 g/dL (3.4-5.0); ANION GAP 5 mmol/L (5-15); CALCIUM 8.6 mg/dL (8.5-10.1); CHLORIDE 105 mmol/L (98-107)
[2018-08-14 06:10] LABS: BASOPHILS # (AUTO) 0.04 x10^3/uL (0-0.1); BASOPHILS % (AUTO) 0 % (0-1); EOSINOPHILS # (AUTO) 0.12 x10^3/uL (0-0.4); EOSINOPHILS % (AUTO) 1 % (1-7); LYMPHOCYTES # (AUTO) 2.47 x10^3/uL (1-3.4); LYMPHOCYTES % (AUTO) 27 % (22-44); MD NO; MEAN CORPUSCULAR HEMOGLOBIN 31.6 pg (27.5-34.5); MEAN CORPUSCULAR HGB CONC 33.4 g/dL (33.2-36.2); MEAN CORPUSCULAR VOLUME 94.6 fL (81-97); MEAN PLATELET VOLUME 9.4 fL (7.4-10.4); MONOCYTES # (AUTO) 0.75 x10^3/uL (0.2-0.8); MONOCYTES % (AUTO) 8 % (2-9); NEUTROPHILS % (AUTO) 63 % (42-75); PLATELET COUNT 199 x10^3/uL (130-400); RED BLOOD COUNT 4.46 x10^6/uL (4.38-5.82); RED CELL DISTRIBUTION WIDTH 14.3 % (9.4-14.8)
[2018-08-14 06:15] LABS: ALANINE AMINOTRANSFERASE 24 U/L (12-78); ALKALINE PHOSPHATASE 79 U/L (45-117); BILIRUBIN,TOTAL 0.6 mg/dL (0.2-1.0); CREATININE 2.42 mg/dL (0.7-1.3); TOTAL PROTEIN 6.8 g/dL (6.4-8.2)
[2018-08-14 07:30] VITALS: BP 131/82
[2018-08-14] MEDS: DILTIAZEM 125 MG in SODIUM CHLORIDE 0.9% 100 ML IV SCH (09:29)
[2018-08-14] MEDS: APIXABAN 5 MG TABLET PO SCH ×2 (09:35→20:36)
[2018-08-14] MEDS: DILTIAZEM 120 MG CAP.ER.24H PO SCH (09:35)
[2018-08-14] MEDS: METOPROLOL SUCCINATE 100 MG TAB.ER.24H PO SCH ×2 (09:36→20:36)
[2018-08-14] MEDS: FUROSEMIDE 40 MG TABLET PO SCH (09:36)
[2018-08-14] MEDS: VENLAFAXINE XR 37.5MG CAP.ER.24H PO SCH (09:36)
[2018-08-14] MEDS: SODIUM CHLORIDE FLUSH 10ML SYR IVF SCH ×2 (09:37→20:37)
[2018-08-14 13:10] VITALS: BP 130/87
[2018-08-14 19:40] VITALS: BP 114/78
[2018-08-14 20:34] VITALS: BP 121/80
[2018-08-15 00:59] VITALS: BP 127/87
[2018-08-15] MEDS: morphine SULFATE 10 MG/ML, 1ML IV PRN ×3 (04:34→07:51)
[2018-08-15 05:06] LABS: BASOPHILS # (AUTO) 0.05 x10^3/uL (0-0.1); BASOPHILS % (AUTO) 1 % (0-1); EOSINOPHILS # (AUTO) 0.07 x10^3/uL (0-0.4); EOSINOPHILS % (AUTO) 1 % (1-7); LYMPHOCYTES # (AUTO) 2.35 x10^3/uL (1-3.4); LYMPHOCYTES % (AUTO) 23 % (22-44); MD NO; MEAN CORPUSCULAR HEMOGLOBIN 31.7 pg (27.5-34.5); MEAN CORPUSCULAR HGB CONC 33.4 g/dL (33.2-36.2); MEAN CORPUSCULAR VOLUME 94.8 fL (81-97); MEAN PLATELET VOLUME 9.5 fL (7.4-10.4); MONOCYTES # (AUTO) 0.74 x10^3/uL (0.2-0.8); MONOCYTES % (AUTO) 7 % (2-9); NEUTROPHILS # (AUTO) 6.94 x10^3/uL (1.8-6.8); NEUTROPHILS % (AUTO) 68 % (42-75); PLATELET COUNT 230 x10^3/uL (130-400); RED CELL DISTRIBUTION WIDTH 14.3 % (9.4-14.8)
[2018-08-15 05:07] LABS: ALANINE AMINOTRANSFERASE 32 U/L (12-78); ALBUMIN 3.4 g/dL (3.4-5.0); ANION GAP 7 mmol/L (5-15); CALCIUM 8.6 mg/dL (8.5-10.1); CHLORIDE 103 mmol/L (98-107); CREATININE 2.46 mg/dL (0.7-1.3)
[2018-08-15 05:22] LABS: ALKALINE PHOSPHATASE 79 U/L (45-117); BILIRUBIN,TOTAL 0.4 mg/dL (0.2-1.0); TOTAL PROTEIN 7.5 g/dL (6.4-8.2)
[2018-08-15] MEDS: LEVOTHYROXINE 75 MCG TABLET PO SCH (05:34)
[2018-08-15 07:30] VITALS: BP 147/88
[2018-08-15] MEDS: SODIUM CHLORIDE FLUSH 10ML SYR IVF SCH ×2 (09:00→21:08)
[2018-08-15] MEDS: DILTIAZEM 120 MG CAP.ER.24H PO SCH (09:37)
[2018-08-15] MEDS: APIXABAN 5 MG TABLET PO SCH ×2 (09:37→21:09)
[2018-08-15] MEDS: FUROSEMIDE 40 MG TABLET PO SCH (09:37)
[2018-08-15] MEDS: VENLAFAXINE XR 37.5MG CAP.ER.24H PO SCH (09:37)
[2018-08-15] MEDS: METOPROLOL SUCCINATE 100 MG TAB.ER.24H PO SCH ×2 (09:38→20:58)
[2018-08-15 13:50] VITALS: BP 119/82
[2018-08-15] MEDS: ACETAMINOPHEN 325 MG TABLET PO PRN (16:33)
[2018-08-15 19:07] VITALS: BP 122/76
[2018-08-16 00:27] VITALS: BP 134/76
[2018-08-16] MEDS: ACETAMINOPHEN 325 MG TABLET PO PRN ×3 (00:40→16:40)
[2018-08-16 04:56] LABS: BASOPHILS # (AUTO) 0.06 x10^3/uL (0-0.1); BASOPHILS % (AUTO) 1 % (0-1); EOSINOPHILS % (AUTO) 1 % (1-7); LYMPHOCYTES % (AUTO) 41 % (22-44); MD NO; MEAN CORPUSCULAR HEMOGLOBIN 31.6 pg (27.5-34.5); MEAN CORPUSCULAR HGB CONC 33.7 g/dL (33.2-36.2); MEAN CORPUSCULAR VOLUME 93.8 fL (81-97); MEAN PLATELET VOLUME 9.2 fL (7.4-10.4); MONOCYTES # (AUTO) 0.75 x10^3/uL (0.2-0.8); MONOCYTES % (AUTO) 10 % (2-9); NEUTROPHILS # (AUTO) 3.35 x10^3/uL (1.8-6.8); NEUTROPHILS % (AUTO) 46 % (42-75); PLATELET COUNT 209 x10^3/uL (130-400); RED BLOOD COUNT 4.81 x10^6/uL (4.38-5.82); RED CELL DISTRIBUTION WIDTH 14.4 % (9.4-14.8)
[2018-08-16] MEDS: LEVOTHYROXINE 75 MCG TABLET PO SCH (06:01)
[2018-08-16 07:37] VITALS: BP 139/94
[2018-08-16] MEDS ORDERED: LEVO75TA PO (08:15)
[2018-08-16] MEDS: APIXABAN 5 MG TABLET PO SCH ×2 (08:52→20:57)
[2018-08-16] MEDS: DILTIAZEM 120 MG CAP.ER.24H PO SCH (08:52)
[2018-08-16] MEDS: VENLAFAXINE XR 37.5MG CAP.ER.24H PO SCH (08:52)
[2018-08-16] MEDS: FUROSEMIDE 40 MG TABLET PO SCH (08:52)
[2018-08-16] MEDS: SODIUM CHLORIDE FLUSH 10ML SYR IVF SCH ×2 (08:53→20:58)
[2018-08-16] MEDS: METOPROLOL SUCCINATE 100 MG TAB.ER.24H PO SCH ×2 (08:53→20:58)
[2018-08-16 15:58] VITALS: BP 106/77
[2018-08-16 18:57] VITALS: BP 122/78
[2018-08-17] VITALS (8 sets, daily range): BP systolic 121–147; BP diastolic 68–84
[2018-08-17] MEDS: LEVOTHYROXINE 75 MCG TABLET PO SCH (05:28)
[2018-08-17] MEDS: DILTIAZEM 120 MG CAP.ER.24H PO SCH (09:23)
[2018-08-17] MEDS: METOPROLOL SUCCINATE 100 MG TAB.ER.24H PO SCH ×2 (09:24→20:27)
[2018-08-17] MEDS: APIXABAN 5 MG TABLET PO SCH ×2 (09:24→20:27)
[2018-08-17] MEDS: VENLAFAXINE XR 37.5MG CAP.ER.24H PO SCH (09:25)
[2018-08-17] MEDS: FUROSEMIDE 40 MG TABLET PO SCH (09:25)
[2018-08-17] MEDS: SODIUM CHLORIDE FLUSH 10ML SYR IVF SCH ×2 (09:26→20:27)
[2018-08-17] MEDS: ACETAMINOPHEN 325 MG TABLET PO PRN ×2 (12:28→22:47)
[2018-08-17] MEDS ORDERED: NITROGLYCERIN 0.4 MG/SPRAY SL PRN (22:00)
[2018-08-17] MEDS: NITROGLYCERIN 0.4 MG BOTTLE (25 TABS) SL PRN ×3 (22:28→22:39)
[2018-08-18 02:00] VITALS: BP 135/88
[2018-08-18] MEDS: LEVOTHYROXINE 75 MCG TABLET PO SCH (05:39)
[2018-08-18 08:26] VITALS: BP 138/88
[2018-08-18] MEDS: FUROSEMIDE 40 MG TABLET PO SCH (08:28)
[2018-08-18] MEDS: VENLAFAXINE XR 37.5MG CAP.ER.24H PO SCH (08:28)
[2018-08-18] MEDS: SODIUM CHLORIDE FLUSH 10ML SYR IVF SCH ×2 (08:28→20:48)
[2018-08-18] MEDS: DILTIAZEM 120 MG CAP.ER.24H PO SCH (08:29)
[2018-08-18] MEDS: METOPROLOL SUCCINATE 100 MG TAB.ER.24H PO SCH ×2 (08:29→20:47)
[2018-08-18] MEDS ORDERED: CEFAZOLIN PMX 1GM/50ML 50 ML IVPB ONE (09:30)
[2018-08-18 15:04] VITALS: BP 126/87
[2018-08-18 19:07] VITALS: BP 151/76
[2018-08-18 20:36] VITALS: BP 137/90
[2018-08-18] MEDS: ACETAMINOPHEN 325 MG TABLET PO PRN (20:48)
[2018-08-18 23:18] VITALS: BP 134/77
[2018-08-19 00:41] VITALS: BP 124/83
[2018-08-19 05:27] LABS: BASOPHILS # (AUTO) 0.05 x10^3/uL (0-0.1); BASOPHILS % (AUTO) 1 % (0-1); EOSINOPHILS # (AUTO) 0.15 x10^3/uL (0-0.4); EOSINOPHILS % (AUTO) 2 % (1-7); LYMPHOCYTES # (AUTO) 2.07 x10^3/uL (1-3.4); LYMPHOCYTES % (AUTO) 33 % (22-44); MD NO; MEAN CORPUSCULAR HEMOGLOBIN 31.4 pg (27.5-34.5); MEAN CORPUSCULAR HGB CONC 33.9 g/dL (33.2-36.2); MEAN CORPUSCULAR VOLUME 92.6 fL (81-97); MONOCYTES # (AUTO) 1.07 x10^3/uL (0.2-0.8); MONOCYTES % (AUTO) 17 % (2-9); NEUTROPHILS # (AUTO) 2.94 x10^3/uL (1.8-6.8); NEUTROPHILS % (AUTO) 47 % (42-75); PLATELET COUNT 179 x10^3/uL (130-400); RED BLOOD COUNT 4.74 x10^6/uL (4.38-5.82); RED CELL DISTRIBUTION WIDTH 14.6 % (9.4-14.8)
[2018-08-19 05:45] LABS: ANION GAP 10 mmol/L (5-15); CALCIUM 8.5 mg/dL (8.5-10.1); CHLORIDE 106 mmol/L (98-107); CREATININE 2.37 mg/dL (0.7-1.3)
[2018-08-19] MEDS: LEVOTHYROXINE 75 MCG TABLET PO SCH (05:59)
[2018-08-19 06:49] VITALS: BP 130/81
[2018-08-19] MEDS: DILTIAZEM 120 MG CAP.ER.24H PO SCH (08:34)
[2018-08-19] MEDS: METOPROLOL SUCCINATE 100 MG TAB.ER.24H PO SCH ×2 (08:35→21:32)
[2018-08-19] MEDS: VENLAFAXINE XR 37.5MG CAP.ER.24H PO SCH (08:35)
[2018-08-19] MEDS: SODIUM CHLORIDE FLUSH 10ML SYR IVF SCH ×3 (08:37→21:31)
[2018-08-19] MEDS: FUROSEMIDE 40 MG TABLET PO SCH (09:00)
[2018-08-19] MEDS ORDERED: CEFAZOLIN PMX 1GM/50ML 50 ML ONE ×2 (09:52→10:03)
[2018-08-19] MEDS ORDERED: LIDOCAINE 2%, 20ML ONE (09:52)
[2018-08-19] MEDS ORDERED: FENTANYL PF 250 MCG/5ML ONE (09:52)
[2018-08-19] MEDS ORDERED: MIDAZOLAM 1 MG/ML, 5ML ONE (09:52)
[2018-08-19] MEDS ORDERED: CEFAZOLIN 1,000 MG ONE (09:52)
[2018-08-19] MEDS ORDERED: HOLD MEDICATION MC PRN (11:00)
[2018-08-19] MEDS ORDERED: ACETAMINOPHEN 325 MG TABLET PO PRN (11:00)
[2018-08-19] MEDS ORDERED: HYDROcodone/APAP 5/325 TABLET PO ONE ×2 (12:00→22:00)
[2018-08-19 12:57] VITALS: BP 95/72
[2018-08-19 17:06] VITALS: BP 132/90
[2018-08-19] MEDS: CEFAZOLIN PMX 1GM/50ML 50 ML IVPB SCH (17:06)
[2018-08-19 19:44] VITALS: BP 126/85
[2018-08-19] MEDS: APIXABAN 5 MG TABLET PO SCH (21:14)
[2018-08-19 21:22] VITALS: BP 123/79
[2018-08-19] MEDS: AMIODARONE 200 MG TABLET PO SCH (21:32)
[2018-08-20 01:30] VITALS: BP 147/67
[2018-08-20] MEDS: CEFAZOLIN PMX 1GM/50ML 50 ML IVPB SCH (01:48)
[2018-08-20 04:54] LABS: MD NO; MEAN CORPUSCULAR HGB CONC 33.3 g/dL (33.2-36.2); MONOCYTES # (AUTO) 1.13 x10^3/uL (0.2-0.8); PLATELET COUNT 166 x10^3/uL (130-400); RED CELL DISTRIBUTION WIDTH 14.8 % (9.4-14.8)
[2018-08-20 05:12] LABS: ANION GAP 9 mmol/L (5-15); CALCIUM 8.5 mg/dL (8.5-10.1); CHLORIDE 106 mmol/L (98-107); CREATININE 2.61 mg/dL (0.7-1.3)
[2018-08-20 05:22] LABS: BASOPHILS # (AUTO) 0.03 x10^3/uL (0-0.1); BASOPHILS % (AUTO) 0 % (0-1); EOSINOPHILS # (AUTO) 0.15 x10^3/uL (0-0.4); EOSINOPHILS % (AUTO) 2 % (1-7); LYMPHOCYTES # (AUTO) 1.73 x10^3/uL (1-3.4); LYMPHOCYTES % (AUTO) 26 % (22-44); MEAN CORPUSCULAR HEMOGLOBIN 30.8 pg (27.5-34.5); MEAN CORPUSCULAR VOLUME 92.4 fL (81-97); MONOCYTES % (AUTO) 17 % (2-9); NEUTROPHILS # (AUTO) 3.75 x10^3/uL (1.8-6.8); NEUTROPHILS % (AUTO) 55 % (42-75); RED BLOOD COUNT 4.67 x10^6/uL (4.38-5.82)
[2018-08-20] MEDS: LEVOTHYROXINE 75 MCG TABLET PO SCH (06:34)
[2018-08-20] MEDS: FUROSEMIDE 40 MG TABLET PO SCH (08:19)
[2018-08-20] MEDS: APIXABAN 5 MG TABLET PO SCH (08:20)
[2018-08-20] MEDS: AMIODARONE 200 MG TABLET PO SCH (08:20)
[2018-08-20] MEDS: METOPROLOL SUCCINATE 100 MG TAB.ER.24H PO SCH (08:20)
[2018-08-20 08:21] VITALS: BP 139/69
[2018-08-20] MEDS: SODIUM CHLORIDE FLUSH 10ML SYR IVF SCH ×2 (08:21)
[2018-08-20 11:17] VITALS: BP 116/76
[2018-08-20] MEDS: DILTIAZEM 120 MG CAP.ER.24H PO SCH (11:20)
[2018-08-20] MEDS: VENLAFAXINE XR 37.5MG CAP.ER.24H PO SCH (11:20)
[2018-08-20] MEDS: ACETAMINOPHEN 325 MG TABLET PO PRN (11:27)
[2018-08-20 13:22] VITALS: BP 132/67
[2018-08-20] MEDS ORDERED: DILT120C9 PO (16:00)
[2018-08-20] MEDS ORDERED: FURO40TA6 PO (16:00)
[2018-08-20] MEDS ORDERED: APIX5TAB PO (16:00)
[2018-08-20] MEDS ORDERED: AMIO200T42 PO ×3 (16:00→16:01)
[2018-08-20] MEDS ORDERED: METO-95 PO (16:00)
== END 2018-08-20 17:05 | disposition home or self-care (01) | DRG 243 ==
LOC: ED 10:51 → 5SO 11:01 → DCLOUNGE 08-20 16:55
PROVIDERS: ADMIT Internal Medicine; ATTEND Internal Medicine
PROC: 0JH604Z Insertion of Pacemaker, Single Chamber into Chest Subcutaneous Tissue and Fascia, Open Approach (ICD-10-PCS; principal; 2018-08-19)
PROC: 02HK3JZ Insertion of Pacemaker Lead into Right Ventricle, Percutaneous Approach (ICD-10-PCS; 2018-08-19)
DX: I48.1 Persistent atrial fibrillation (principal); D68.69 Other thrombophilia; I13.0 Hypertensive heart and chronic kidney disease with heart failure and stage 1 through stage 4 chronic kidney disease, or unspecified chronic kidney disease; I31.3 Pericardial effusion (noninflammatory); N18.4 Chronic kidney disease, stage 4 (severe); Z68.42 Body mass index [BMI] 45.0-49.9, adult; I50.32 Chronic diastolic (congestive) heart failure; I49.5 Sick sinus syndrome; E03.9 Hypothyroidism, unspecified; E11.22 Type 2 diabetes mellitus with diabetic chronic kidney disease; E66.01 Morbid (severe) obesity due to excess calories; E78.5 Hyperlipidemia, unspecified; G47.33 Obstructive sleep apnea (adult) (pediatric); I71.2 Thoracic aortic aneurysm, without rupture; R07.2 Precordial pain; M79.604 Pain in right leg; M10.9 Gout, unspecified; Z79.01 Long term (current) use of anticoagulants; Z87.891 Personal history of nicotine dependence; Z91.19 Patient's noncompliance with other medical treatment and regimen; Z93.3 Colostomy status; Z90.49 Acquired absence of other specified parts of digestive tract
CPT/HCPCS: 33207; 36415; 73630; 99291; J3490; 71045; 80048; 80053; 80162; 83036; 83735; 83880; 84100; 84443; 84484; 84550; 85025; 85610; 85730; 93005; 93308; 93321; 93325; 96374; 99156; C1779; C1786; C1892; G0378; J0690; J2250; J3010; J1160; J2270; J7512

== ENCOUNTER 2018-09-22 12:02 | Inpatient (IN) | payer OTHER ==
[~2018-09-22] VITALS: Ht 195.6 cm; Wt 183.2 kg
[2018-09-27 15:12] VITALS: BP 131/88
== END 2018-09-27 18:36 | disposition home or self-care (01) | DRG 315 ==
LOC: ED 13:35 → EDIP 13:44 → 5SO 15:56
PROVIDERS: ADMIT Family Medicine; ATTEND Family Medicine
PROC: 0W9D30Z Drainage of Pericardial Cavity with Drainage Device, Percutaneous Approach (ICD-10-PCS; principal; 2018-09-24)
DX: I31.3 Pericardial effusion (noninflammatory) (principal); I13.0 Hypertensive heart and chronic kidney disease with heart failure and stage 1 through stage 4 chronic kidney disease, or unspecified chronic kidney disease; J98.11 Atelectasis; N17.9 Acute kidney failure, unspecified; Z68.42 Body mass index [BMI] 45.0-49.9, adult; I48.91 Unspecified atrial fibrillation; E03.9 Hypothyroidism, unspecified; E11.22 Type 2 diabetes mellitus with diabetic chronic kidney disease; E66.01 Morbid (severe) obesity due to excess calories; E78.5 Hyperlipidemia, unspecified; E87.5 Hyperkalemia; F32.9 Major depressive disorder, single episode, unspecified; F41.9 Anxiety disorder, unspecified; G47.30 Sleep apnea, unspecified; I50.9 Heart failure, unspecified; E11.43 Type 2 diabetes mellitus with diabetic autonomic (poly)neuropathy; I71.2 Thoracic aortic aneurysm, without rupture; M10.9 Gout, unspecified; I95.9 Hypotension, unspecified; N18.3 Chronic kidney disease, stage 3 (moderate); Z79.01 Long term (current) use of anticoagulants; Z87.891 Personal history of nicotine dependence; Z93.3 Colostomy status; Z95.0 Presence of cardiac pacemaker; Z90.49 Acquired absence of other specified parts of digestive tract; Z79.899 Other long term (current) drug therapy
CPT/HCPCS: 33010; 36415; 99291; J3490; 71045; 71250; 76770; 76930; 80048; 80053; 81001; 82962; 83735; 83880; 84439; 84443; 84484; 85025; 85610; 88112; 88305; 89051; 93005; 93308; 93321; 93325; 99156; 99157; C1729; G0378; J2250; J3010; J1815; J2270; J7030; J7040